=== PATIENT | male | born 1945 | race Caucasian/White ===

== ENCOUNTER → 2016-10-23 | Outpatient (CLI) | payer OTHER ==
[~2016-10-23] MED LIST: ATOR-22 PO; CMD75 PO; ENOX80IN SQ; WARF-237 PO
[2016-10-23 12:57] LABS: BASO % 0.3 %; BASO ABS # 0.02 K/uL (0-0.2); COMPLETE YES; EOS % 0.3 %; HEMATOCRIT 46.5 % (42-52); IG% 0.3 %; LYMPH % 9.4 %; LYMPH ABS # 0.68 K/uL (1.2-3.4); MEAN CELL VOLUME 90.5 fL (80-100); MEAN CORPUSCULAR HEMOGLOBIN 32.1 pg (25-34); MEAN CORPUSCULAR HGB CONC 35.5 g/dl (32-36); MEAN PLATELET VOLUME 10.6 fL (7.4-10.4); MONO % 4.8 %; NEUT % 84.9 %; PLATELET COUNT 137 K/uL (130-400); RED BLOOD COUNT 5.14 M/uL (4.7-6.1); WHITE BLOOD COUNT 7.27 K/uL (4.8-10.8)
[2016-10-23 13:07] LABS: ALT/SGPT 25 U/L (12-78); BLOOD UREA NITROGEN 26 mg/dl (7-18); BUN/CREATININE RATIO 19.8 (10-20); CARBON DIOXIDE 25 mmol/L (21-32); CHLORIDE 106 mmol/L (98-107); CHOLESTEROL 123 mg/dl (0-200); GLUCOSE 84 mg/dl (70-99); POTASSIUM 4.3 mmol/L (3.5-5.1); SODIUM 140 mmol/L (136-145)
[2016-10-23 13:10] LABS: ALB/GLOB RATIO 1.1 (0.9-2); ALKALINE PHOSPHATASE 110 U/L (45-117); AST/SGOT 21 U/L (15-37); CHOLESTEROL/HDL RATIO 2.9; HDL CHOLESTEROL 43 mg/dl; LDL CHOLESTEROL CALCULATED 56 mg/dl; TRIGLYCERIDES 118 mg/dl (0-150); VERY LOW DENSITY LIPOPROT CALC 24 mg/dl
== END | disposition home or self-care (01) ==
LOC: C.LABBFT 10:46
PROVIDERS: ATTEND Internal Medicine
DX: E78.5 Hyperlipidemia, unspecified (principal); Z51.81 Encounter for therapeutic drug level monitoring; Z79.01 Long term (current) use of anticoagulants; I82.409 Acute embolism and thrombosis of unspecified deep veins of unspecified lower extremity

== ENCOUNTER → 2017-10-27 | Outpatient (CLI) | payer OTHER ==
[2017-10-27 13:08] LABS: ALBUMIN 3.6 gm/dl (3.4-5.0); ALT/SGPT 32 U/L (12-78); AST/SGOT 21 U/L (15-37); BLOOD UREA NITROGEN 18 mg/dl (7-18); CALCIUM 8.6 mg/dl (8.5-10.1); CARBON DIOXIDE 27 mmol/L (21-32); GLUCOSE 86 mg/dl (70-99); SODIUM 140 mmol/L (136-145)
[2017-10-27 13:11] LABS: ALKALINE PHOSPHATASE 105 U/L (45-117); CHOLESTEROL 101 mg/dl (0-200); LDL CHOLESTEROL CALCULATED 43 mg/dl
== END | disposition home or self-care (01) ==
LOC: C.LABBFT 09:03
PROVIDERS: ATTEND Physician Assistant Medical
DX: E78.5 Hyperlipidemia, unspecified (principal)

== ENCOUNTER 2023-11-24 18:07 | Inpatient (IN) ==
--- NOTE | 2023-11-24 19:09 | XRay Report ---
XR chest 1V not portable HISTORY: Sepsis COMPARISON: Chest 11/04/2023. FINDINGS: A few left basilar linear densities favor subsegmental atelectasis or scarring. No focal rafat ng consolidations to suggest a pneumonia. No evidence for pulmonary edema. The heart is normal in siz e. No acute fractures. IMPRESSION: No acute process. ACT 112: Negative or not required by law. Electronically signed by: Oumar Carrillo M.D. 11/24/2023 7:07 PM
[2023-11-24 19:43] LABS: Basophils # (auto) 0.02 K/uL (0.00-0.20); Basophils % (auto) 0.5 %; Eosinophils # (auto) 0.11 K/uL (0.00-0.50); Eosinophils % (auto) 2.9 %; Hematocrit (blood only) 50.2 % (42.0-52.0); Hemoglobin 17.8 g/dl (14.0-18.0); Immature Granulocytes # (auto) 0.02 K/uL (0.01-0.20); Immature Granulocytes % (auto) 0.5 %; Lymphocytes # (auto) 0.26 K/uL (1.20-3.40); Lymphocytes % (auto) 6.8 %; Mean Corpuscular Hemoglobin 31.3 pg (25.0-34.0); Mean Corpuscular Hgb Conc 35.5 g/dL (32.0-36.0); Mean Corpuscular Volume 88.2 fL (80.0-100.0); Mean Platelet Volume 9.5 fL (9.4-12.4); Monocytes # (auto) 0.29 K/uL (0.11-0.59); Monocytes % (auto) 7.6 %; Neutrophils % (auto) 81.7 %; Platelet Count 164 K/uL (130-400); Red Blood Count 5.69 M/uL (4.70-6.10)
[2023-11-24 19:47] LABS: Appearance Urine Clear (Clear); Bacteria Urine Automated Negative (Negative); Blood Urine Negative (Negative); Color Urine Dark Yellow; Epithelial Cell Urine Auto >30 /lpf (0-5); Glucose Urine UA Negative (Negative); Ketones Urine Negative (Negative); Leukocyte Esterase Urine Negative (Negative); Nitrite Urine Negative (Negative); Protein Urine Trace (Negative); Specific Gravity Urine 1.027 (1.000-1.030); Urobilinogen Urine Negative (Negative)
[2023-11-24 19:51] LABS: Bilirubin Urine 1+ (Negative)
[2023-11-24 19:59] LABS: Alanine Aminotransferase 13 U/L (7-52); Albumin Globulin Ratio 1.2 (0.9-2); Albumin Level 4.4 gm/dl (3.4-5.0); Alkaline Phosphatase 131 U/L (34-104); Anion Gap 11 (3-11); Aspartate Aminotransferase 21 U/L (13-39); BUN Creatinine Ratio 21.2 (10-20); Bilirubin,Total 0.9 mg/dl (0.2-1.0); Blood Urea Nitrogen 46 mg/dl (6-23); Calcium 9.4 mg/dl (8.6-10.3); Carbon Dioxide 27 mmol/L (21-32); Chloride 93 mmol/L (98-107); Est GFR (African American) 32.1 ml/min; Est GFR (Non-African American) 27.7 ml/min; Globulin 3.8 gm/dl (2.5-4.0); Glucose 112 mg/dl (70-99(Fasting)); Magnesium 2.4 mg/dl (1.7-2.4); Potassium 4.5 mmol/L (3.5-5.1); Sodium 131 mmol/L (136-145); Total Protein 8.2 gm/dl (6.0-8.3)
[2023-11-24 20:07] LABS: Troponin I High Sensitivity 17.1 pg/ml (0-20)
[2023-11-24 20:11] LABS: INR 1.1 (0.9-1.1); Partial Thromboplastin Ratio 1.2; Partial Thromboplastin Time 35 Seconds (21-31); Prothrombin Time 12.2 Seconds (9.0-12.0)
--- NOTE | 2023-11-24 20:42 | Emergency Department Note ---
History of Present Illness General Chief complaint: Infection Stated complaint: LT LEG INFECTION Time Seen by Provider: 11/24/23 20:21 Source: patient, family (Son who is at the bedside), RN notes reviewed and old records reviewed (11/19/23- Outpatient primary care visit for same complaint) Mode of arrival: ambulatory Limitations: no limitations History of Present Illness Maximum Pain Intensity: 5 This patient is a an 78-year-old male who comes in after having left leg pain and swelling. He has been retaining fluids he was seen here and then had follow-up with his primary doctor on 11/18. They started him on Bactrim and Lasix 40 mg a day he is on Eliquis for history of blood clots. He did have an ultrasound on 11/04/23 which did not show any acute DVT there are some chronic DVT changes. He was seen by home health and they thought the leg looks significantly worse and has foul-smelling discharge at times. They sent him here after they called the primary care doctor. No chest pain no shortness of breath. He has a rash on his torso that has not been itchy. No fever Home Medications Medication Instructions Recorded Confirmed Type apixaban 5 mg tablet (Eliquis) 5 mg PO BID #60 tabs 11/12/23 11/24/23 Rx furosemide 40 mg tablet 40 mg PO DAILY #7 tabs 11/12/23 11/24/23 Rx sulfamethoxazole 800 1 tab PO BID 10 days #20 tabs 11/20/23 11/24/23 Rx mg-trimethoprim 160 mg tablet (Bactrim DS) Allergies Allergy/AdvReac Type Severity Reaction Status Date / Time oxycodone AdvReac Intermediate NAUSEA,VOMITING, Verified 11/24/23 20:58 DAZED FEELING warfarin AdvReac Mild h/a from Verified 11/24/23 20:58 generic, use Brand name only Past Med/Surg History Medical History Aortic insufficiency Colon polyp Diverticulosis Hx of venous thrombosis and embolism Internal hemorrhoids Traumatic subdural hematoma Surgical History History of inguinal hernia repair History of esophagogastroduodenoscopy (EGD) History of colonoscopy Family History Father Cancer Mother Cancer Denies family history of Prostate cancer Breast cancer Colorectal cancer Social History Smoking Status: Unknown if ever smoked Second Hand Exposure: No; Do You Dip or Chew Tobacco: No; Hx Alcohol Use: No Hx Substance Use: No Preferred Language: Polish Communication Ability: Effective Visual Impairment: No Limitations Hearing Ability: Normal marital status: / Current Living Situation: Alone current occupational status: retired Feels Safe at Home: Yes Diet: regular caffeine: Yes Dental Care, Regularly: No Physical Activity Frequency: Daily Seatbelt Use: always Review of Systems A total of 10 systems reviewed and were otherwise negative Physical Exam Vital Signs Vital Signs - 24 hr 11/24/23 18:11 11/24/23 21:13 11/24/23 21:13 Temperature 36.9 C Temperature Source Temporal Artery Scan Pulse Rate 96 H 101 H 96 H Pulse Rate from SpO2 Sensor Respiratory Rate 16 20 Respiratory Effort / Characteristics Non-Labored Spontaneous Respiratory Depth Normal Blood Pressure 124/57 L 126/74 Blood Pressure Mean 79 103 Pulse Oximetry 95 95 Oxygen Delivery Method Room Air Sepsis Recent Fever Within 48 Hours No Sepsis New/Unexplained Change in Mental Status N/A Sepsis Action Taken by Nursing No Action Required 11/24/23 21:14 11/24/23 21:20 11/24/23 21:30 Temperature Temperature Source Pulse Rate 96 H 96 H 115 H Pulse Rate from SpO2 Sensor 95 H Respiratory Rate 20 21 18 Respiratory Effort / Characteristics Respiratory Depth Blood Pressure Blood Pressure Mean Pulse Oximetry 95 Oxygen Delivery Method Sepsis Recent Fever Within 48 Hours Sepsis New/Unexplained Change in Mental Status Sepsis Action Taken by Nursing 11/24/23 21:40 11/24/23 21:50 Temperature Temperature Source Pulse Rate 98 H 99 H Pulse Rate from SpO2 Sensor Respiratory Rate 15 15 Respiratory Effort / Characteristics Respiratory Depth Blood Pressure Blood Pressure Mean Pulse Oximetry Oxygen Delivery Method Sepsis Recent Fever Within 48 Hours Sepsis New/Unexplained Change in Mental Status Sepsis Action Taken by Nursing General: Well developed well nourished older male who appears in no acute distress, breathing comfortably on room air. Normal speech HEENT: Normal cephalic atraumatic. Pupils are equal round and reactive to light. Extraocular movements are intact. Oropharynx is pink with moist mucous membranes. No swelling of the mouth lips or tongue. Neck: Supple with a midline trachea. No meningeal signs or stiffness, no JVD or bruits. No Stridor. Chest: Clear to auscultation bilaterally. No wheezes or rhonchi. No increased work of breathing. Heart: Regular rate and rhythm without murmurs or gallops. Abdomen: Soft nontender, nondistended without rebound guarding or rigidity. Extremities: No cyanosis clubbing he does have significant bilateral lower extremity edema with vascular insufficiency. The left leg is red and swollen there is skin breakdown anteriorly with some foul-smelling discharge. The entire leg is red around the thigh and below the knee Spine/Back. Non tender to palpation. No CVA tenderness Skin: Good turgor. He has a macular papular rash on his torso Neurologic exam: Cranial nerves two through 12 are intact. Motor and sensation are intact and symmetrical throughout. Course Administered Medications Discontinued Medications Sodium Chloride (Nss) 500 mls @ 999 mls/hr IV .Q31M ONE Stop: 11/24/23 21:06 Last Infusion: 11/24/23 22:47 Dose: Infused Documented By: Admin: 11/24/23 21:10 Dose: 999 mls/hr Documented By: KENIA Piperacillin Sod/Tazobactam Sod (Zosyn) 4.5 gm in 100 mls @ 200 mls/hr IV NOW ONE Stop: 11/24/23 21:18 Last Infusion: 11/24/23 22:46 Dose: Infused Documented By: Admin: 11/24/23 21:05 Dose: 200 mls/hr Documented By: KENIA Medical Decision Making Differential Diagnosis Cellulitis, vascular insufficiency, medication allergic reaction, DVT, sepsis Medical Records Attestation: I reviewed the patient's medical records. Home Medications Current Medication List: was personally reviewed by me Laboratory Data Attestation: I reviewed the patient's lab results. 11/24/23 19:20 11/24/23 19:20 Lab Results 11/24/23 11/24/23 Range/Units 19:20 21:24 WBC 3.80 L (4.8-10.8) K/ul RBC 5.69 (4.70-6.10) M/uL Hgb 17.8 (14.0-18.0) g/dl Hct 50.2 (42.0-52.0) % MCV 88.2 (80.0-100.0) fL MCH 31.3 (25.0-34.0) pg MCHC 35.5 (32.0-36.0) g/dL RDW Std Deviation 42.0 (36.4-46.3) fL RDW Coeff of Miriam 13.0 (11.5-14.5) % Plt Count 164 (130-400) K/uL MPV 9.5 (9.4-12.4) fL Immature Gran % (Auto) 0.5 % Neut % (Auto) 81.7 % Lymph % (Auto) 6.8 % Lassen % (Auto) 7.6 % Eos % (Auto) 2.9 % Baso % (Auto) 0.5 % Neut # (Auto) 3.10 (1.40-6.50) K/uL Lymph # (Auto) 0.26 L (1.20-3.40) K/uL Lassen # (Auto) 0.29 (0.11-0.59) K/uL Eos # (Auto) 0.11 (0.00-0.50) K/uL Baso # (Auto) 0.02 (0.00-0.20) K/uL Immature Gran # (Auto) 0.02 (0.01-0.20) K/uL PT 12.2 H (9.0-12.0) Seconds INR 1.1 (0.9-1.1) APTT 35 H (21-31) Seconds PTT Ratio 1.2 Sodium 131 L (136-145) mmol/L Potassium 4.5 (3.5-5.1) mmol/L Chloride 93 L (98-107) mmol/L Carbon Dioxide 27 (21-32) mmol/L Anion Gap 11 (3-11) BUN 46 H (6-23) mg/dl Creatinine 2.17 H (0.6-1.4) mg/dl Est Cr Clr Drug Dosing Not Reportable Est GFR ( Amer) 32.1 ml/min Est GFR (Non-Af Amer) 27.7 ml/min BUN/Creatinine Ratio 21.2 H (10-20) Glucose 112 H (70-99(Fasting)) mg/dl Lactate 1.7 1.5 (0.4-2.0) mmol/L Calcium 9.4 (8.6-10.3) mg/dl Magnesium 2.4 (1.7-2.4) mg/dl Total Bilirubin 0.9 (0.2-1.0) mg/dl AST 21 (13-39) U/L ALT 13 (7-52) U/L Alkaline Phosphatase 131 H (34-104) U/L Troponin I High Sens 17.1 (0-20) pg/ml Total Protein 8.2 (6.0-8.3) gm/dl Albumin 4.4 (3.4-5.0) gm/dl Globulin 3.8 (2.5-4.0) gm/dl Albumin/Globulin Ratio 1.2 (0.9-2) Procalcitonin 0.65 H (0-0.5) ng/ml Urine Color Dark Yellow Urine Appearance Clear (Clear) Urine pH 5.0 (4.5-7.5) Ur Specific Fulda 1.027 (1.000-1.030) Urine Protein Trace H (Negative) Urine Glucose (UA) Negative (Negative) Urine Ketones Negative (Negative) Urine Blood Negative (Negative) Urine Nitrite Negative (Negative) Urine Bilirubin 1+ H (Negative) Urine Urobilinogen Negative (Negative) Ur Leukocyte Esterase Negative (Negative) Urine WBC (Auto) 1-5 (0-5) /hpf Urine RBC (Auto) 5-10 H (0-4) /hpf U Hyaline Cast (Auto) 5-10 H (0-5) /lpf U Epithel Cells (Auto) >30 H (0-5) /lpf Urine Bacteria (Auto) Negative (Negative) Imaging Data Attestation: I personally reviewed and interpreted this imaging study as follows: My Impression: Chest x-rayno acute infiltrate, failure, pneumothorax seen Radiologist's Impression: Chest X-Ray 11/24/23 18:16 XR chest 1V not portable HISTORY: Sepsis COMPARISON: Chest 11/04/2023. FINDINGS: A few left basilar linear densities favor subsegmental atelectasis or scarring. No focal lung consolidations to suggest a pneumonia. No evidence for pulmonary edema. The heart is normal in size. No acute fractures. IMPRESSION: No acute process. ACT 112: Negative or not required by law. Electronically signed by: Oumar Carrillo M.D. 11/24/2023 7:07 PM ECG Data Attestation: I personally reviewed and interpreted this ECG as follows: Indication: + weakness Rate (beats per minute): 99 Rhythm: + normal sinus MDM Narrative This patient comes in as described above. [place] to help expedite his care. He was noted to have a red swollen left leg there is discharge. He has been on outpatient antibiotics also has a rash and I think is likely having allergic reaction to Bactrim is no evidence to suggest any airway compromise. Blood work was obtained. He also has renal insufficiency which has gotten worse it may be from either the Bactrim or the diuresis. he was given gentle fluid bolus of 500 cc IV, I did not use the 30/kg as he had stable vital signs and I was concerned about fluid overloading him. I did a blood cultures and lactic acid I do think he will need to be admitted for further treatment evaluation of his cellulitis. Have consulted Dr. Arnett and discussed the antibiotic choices we are going to start him on Zosyn here I ordered Zosyn 4.5 g IV. His lactic acid was 1.7. The patient's son were happy the plan and he will be admitted/observed. Continuous cardiac monitoring: Order was placed in EMR for continuous cardiac monitoring. Upon my evaluation is a poor baseline but normal sinus with a rate of 95 with ectopy/PACs Impression & Plan Cellulitis of left leg, History of DVT (deep vein thrombosis), Venous stasis of both lower extremities, Factor V Leiden mutation, Current use of fci anticoagulation Discharge Plan Visit Data Chief Complaint: Infection Stated Complaint: LT LEG INFECTION ED Provider: Obed Guevara Discharge Problem: Cellulitis of left leg, History of DVT (deep vein thrombosis), Venous stasis of both lower extremities, Factor V Leiden mutation, Current use of terminal manager anticoagulation Patient Disposition: Admitted As Inpatient Discharge Instructions Interventions: ED Discharge Assessment Last Done: 11/24/23 23:27
[2023-11-24] MEDS: PIPERACILLIN/TAZOBACTAM 4.5 GM/100 ML BAG IV ONE (21:05)
[2023-11-24] MEDS: SODIUM CHLORIDE 0.9% 500 ML IV ONE (21:10)
--- NOTE | 2023-11-24 22:03 | History & Physical Report ---
Date of Service November 24, 2023 Assessment & Plan (1) Cellulitis of left leg: Plan: -Persistent cellulitis for the past 3 months per patient, upon chart check patient has only been on Bactrim thus far. -L leg erythematous, warm, tender consistent with cellulitis. -Given Zosyn x1 in the ER. -Patient not diabetic, not immunocompromised, less likely pseudomonas infection. -Has had some puss/drainage per patient, concern for staph origin of cellulitis. -Will switch antibiotics to daptomycin 6mg/kg q48hr given kidney function, ceftriaxone 2gm q24h. -Watch for clinical improvement. -Admit to telemetry. (2) Acute kidney injury: Plan: -Creatinine 1.03 on 11/04, bumped to 1.48 11/18, then to 2.17 on admission. -Patient was started on Bactrim on as well as Lasix 40mg daily. -May have ALFRED due to Bactrim use. -Holding Bactrim and switching antibiotics as above. -If improvement on the above antibiotics could trial doxycycline instead. (3) Venous stasis of both lower extremities: Plan: -Both legs have chronic venous stasis look, with left leg appearing cellulitic on top of this. -Will hold on diuretic use at the current time until kidney function improves. (4) Factor V Leiden mutation: Plan: -History of Factor V Leiden mutation on chronic anticoagulation. -Will continue Eliquis at 2.5mg BID given creatinine >1.5 and patient 78 years old. (5) Hyperlipidemia: Plan: Noted. Not on any treatment. (6) emt intermediate current use of anticoagulant: Plan: As above. (7) Atrial fibrillation: Plan: Patient noted to be in A. fib w/ RVR on admission EKG. May be secondary to infection or chronic. -Will continue Eliquis as above. Could consider rate control however rates are trending down in 90's at the current time. Plan F/E/N/GI: Regular diet. DVT Prophylaxis: Eliquis 2.5mg BID Code status: Full code Dispo: Med/tele. History of Present Illness Chief Complaint: L leg cellulitis Primary Care Provider: Alexandro Jiménez MD Edwin is an 78 year old male with past history of aortic insufficiency, diverticulosis, venous thrombosis and embolism, traumatic subdural hematoma, atrial fibrillation coming in for chronic cellulitis of the left leg. Patient had previously had this start 3 months prior and stated that it has been persistent ever since. He has been on multiple antibiotics orally for this with some minor improvement but then persistence. He has also had accompanied swelling of the left leg and increased warmth. He was previously seen in the ER and a doppler was performed which showed no acute DVT, evidence of likely chronic DVT within superficial femoral veins. He has had some puss drainage at times from the area. He overall feels well, denies any fevers, chills, shortness of breath, chest pain, diarrhea, constipation, abdominal pain, any involvement of the R leg. He states he is on Eliquis for irregular heart rhythm. In the ER CBC unremarkable, CMP with increased creatinine/worsening kidney function from earlier in the month and worse than October; sodium 131, procal 0.65, U/A with trace protein, 5-10 RBC, 1+ bilirubin, hyaline cast, epithelial cast. CXR unremarkable. Allergies Allergy/AdvReac Type Severity Reaction Status Date / Time oxycodone AdvReac Intermediate NAUSEA,VOMITING, Verified 11/24/23 20:58 DAZED FEELING warfarin AdvReac Mild h/a from Verified 11/24/23 20:58 generic, use Brand name only Home Medications Medication Instructions Recorded Confirmed Type apixaban 5 mg tablet (Eliquis) 5 mg PO BID #60 tabs 11/12/23 11/24/23 Rx furosemide 40 mg tablet 40 mg PO DAILY #7 tabs 11/12/23 11/24/23 Rx sulfamethoxazole 800 1 tab PO BID 10 days #20 tabs 11/20/23 11/24/23 Rx mg-trimethoprim 160 mg tablet (Bactrim DS) Past Med/Surg History Medical History Aortic insufficiency Colon polyp Diverticulosis Hx of venous thrombosis and embolism Internal hemorrhoids Traumatic subdural hematoma Surgical History History of inguinal hernia repair History of esophagogastroduodenoscopy (EGD) History of colonoscopy Family History Father Cancer Mother Cancer Denies family history of Prostate cancer Breast cancer Colorectal cancer Social History Smoking Status: Unknown if ever smoked Second Hand Exposure: No; Do You Dip or Chew Tobacco: No; Hx Alcohol Use: No Hx Substance Use: No Preferred Language: Bulgarian Communication Ability: Effective Visual Impairment: No Limitations Hearing Ability: Normal 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 Physical Exam Constitutional: WD/WN, vitals as above Eyes: PERRL, conjunctivae normal, anicteric sclerae Respiratory: normal respiratory effort, lungs clear to auscultation Cardiovascular: Rate/Rhythm: + irregularly irregular Heart Sounds: normal S1 and normal S2 Gastrointestinal (Abdomen): normal bowel sounds, soft, nontender, no hepatosplenomegaly Skin: L leg with markedly increased warmth, erythema from knee to the ankle, chronic venous stasis changes likely as well when compared to the other leg. Psychiatric: A+Ox3, euthymic affect Results & Data Results & Data Vital Signs (Past 12 Hours) Vital Signs Temp Pulse Resp BP Pulse Ox O2 Del Method 11/24/23 21:13 101 H 11/24/23 18:11 36.9 C 96 H 16 124/57 L 95 Room Air Supervising Physician Co-Signing Physician Notes Patient seen and examined, chart reviewed, case discussed with Dr. Chowdhury and I agree with the assessment and plan as above Resident Activity Tracking Resident Involvement: Resident Care Provided Care Provided: Adult Hospital Medicine
[2023-11-24] MEDS ORDERED: POLYETHYLENE (MIRALAX) 17 GM PACK PO PRN (23:27)
[2023-11-24] MEDS ORDERED: ONDANSETRON INJ 2 MG/ML 2 ML VIAL IV PRN (23:27)
[2023-11-24] MEDS ORDERED: ACETAMINOPHEN 325 MG TAB PO PRN (23:27)
[2023-11-25] MEDS: Patient's HEIGHT &/or WEIGHT Needed STA (00:29)
[2023-11-25] MEDS: DAPTOmycin 500 MG in SYRINGE 0 ML IV SCH (01:01)
[2023-11-25 04:59] LABS: C Reactive Protein 3.56 mg/dl (0-0.5); Calcium 8.2 mg/dl (8.6-10.3); Creatinine Clr Calc Pharmacy 33.9 ml/min; Est GFR (African American) 37.5 ml/min; Est GFR (Non-African American) 32.4 ml/min
[2023-11-25 05:33] LABS: Basophils # (auto) 0.02 K/uL (0.00-0.20); Basophils % (auto) 0.4 %; Eosinophils # (auto) 0.08 K/uL (0.00-0.50); Eosinophils % (auto) 1.7 %; Hematocrit (blood only) 44.2 % (42.0-52.0); Hemoglobin 14.9 g/dl (14.0-18.0); Immature Granulocytes # (auto) 0.03 K/uL (0.01-0.20); Immature Granulocytes % (auto) 0.6 %; Lymphocytes # (auto) 0.21 K/uL (1.20-3.40); Lymphocytes % (auto) 4.4 %; Mean Corpuscular Hemoglobin 30.1 pg (25.0-34.0); Mean Corpuscular Hgb Conc 33.7 g/dL (32.0-36.0); Mean Corpuscular Volume 89.3 fL (80.0-100.0); Mean Platelet Volume 9.3 fL (9.4-12.4); Monocytes % (auto) 6.3 %; Neutrophils # (auto) 4.15 K/uL (1.40-6.50); Neutrophils % (auto) 86.6 %; Platelet Count 132 K/uL (130-400); RDW Coefficient of Variation 12.8 % (11.5-14.5); Red Blood Count 4.95 M/uL (4.70-6.10); White Blood Count 4.79 K/ul (4.8-10.8)
[2023-11-25] MEDS: cefTRIAXone SODIUM 2,000 MG in DEXTROSE 5 % MINI-B 50 ML IV SCH (08:15)
[2023-11-25] MEDS: APIXABAN 2.5 MG TAB PO SCH (08:36)
[2023-11-26 08:12] LABS: Basophils # (auto) 0.03 K/uL (0.00-0.20); Basophils % (auto) 0.8 %; Eosinophils # (auto) 0.24 K/uL (0.00-0.50); Eosinophils % (auto) 6.2 %; Hematocrit (blood only) 43.7 % (42.0-52.0); Hemoglobin 15.1 g/dl (14.0-18.0); Immature Granulocytes # (auto) 0.02 K/uL (0.01-0.20); Immature Granulocytes % (auto) 0.5 %; Lymphocytes # (auto) 0.23 K/uL (1.20-3.40); Lymphocytes % (auto) 5.9 %; Mean Corpuscular Hemoglobin 30.4 pg (25.0-34.0); Mean Corpuscular Hgb Conc 34.6 g/dL (32.0-36.0); Mean Corpuscular Volume 88.1 fL (80.0-100.0); Mean Platelet Volume 9.8 fL (9.4-12.4); Monocytes # (auto) 0.26 K/uL (0.11-0.59); Monocytes % (auto) 6.7 %; Neutrophils % (auto) 79.9 %; Platelet Count 110 K/uL (130-400); RDW Standard Deviation 41.9 fL (36.4-46.3); Red Blood Count 4.96 M/uL (4.70-6.10); White Blood Count 3.88 K/ul (4.8-10.8)
[2023-11-26 08:33] LABS: BUN Creatinine Ratio 27.8 (10-20); C Reactive Protein 3.79 mg/dl (0-0.5); Calcium 8.1 mg/dl (8.6-10.3); Creatinine Clr Calc Pharmacy 48.6 ml/min; Est GFR (African American) 58.1 ml/min; Est GFR (Non-African American) 50.1 ml/min
--- NOTE | 2023-11-26 17:30 | Hospitalist Progress Note ---
Date of Service November 26, 2023 Assessment & Plan (1) Atrial fibrillation: (2) Acute kidney injury: (3) Cellulitis of left leg: (4) Venous stasis of both lower extremities: Plan (1) Cellulitis of left leg: Plan: -Persistent cellulitis for the past 3 months per patient, upon chart check patient has only been on Bactrim thus far. -L leg erythematous, warm, tender consistent with cellulitis. on daptomycin 6mg/kg q48hr given kidney function, ceftriaxone 2gm q24h. wound care consulted (2) Acute kidney injury: Plan: -Creatinine 1.03 on 11/04, bumped to 1.48 11/18, then to 2.17 on admission. -Patient was started on Bactrim on as well as Lasix 40mg daily. holding them ALFRED resolved daily bmp (3) Venous stasis of both lower extremities: Plan: -Both legs have chronic venous stasis look, with left leg appearing cellulitic on top of this. -Will hold on diuretic use at the current time until kidney function improves. (4) Factor V Leiden mutation: Plan: -History of Factor V Leiden mutation on chronic anticoagulation. -Will continue Eliquis at 2.5mg BID given creatinine >1.5 and patient 78 years old. (5) Hyperlipidemia: Plan: Noted. Not on any treatment. (6) longterm current use of anticoagulant: Plan: As above. (7) Atrial fibrillation: Plan: Patient noted to be in A. fib w/ RVR on admission EKG. May be secondary to infection or chronic. -Will continue Eliquis as above. Could consider rate control however rates are trending down in 90's at the current time. 8) hyponatremia improving , monitor BMP Plan F/E/N/GI: Regular diet. DVT Prophylaxis: Eliquis 2.5mg BID Code status: Full code Dispo: Med/tele. Admission and Anticipated Discharge Date Admission Date: November 24, 2023 Subjective reports feeling better, no fever, chills or SOB Review of Systems Review of Systems: All systems reviewed & are unremarkable except as noted in Subjective Physical Exam Physical Exam: head atraumatic , normocephalic neck supple lungs CTA heart S1S2 irregularly irregular abdomen soft, NT, ND, BS present extremities erythema, wounds neuro AA oriented to his name, place Results & Data Results & Data Vital Signs (Past 12 Hours) Vital Signs Temp Pulse Pulse Resp BP Pulse Ox O2 Del Method 11/26/23 16:09 77 11/26/23 15:39 36.5 C 81 18 113/63 97 Room Air 11/26/23 11:19 36.7 C 85 18 103/55 L 94 Room Air 11/26/23 09:15 Room Air 11/26/23 07:17 36.8 C 90 18 105/59 L 98 Room Air 11/26/23 07:10 88 Laboratory Results Abnormal lab results 11/26/23 Range/Units 07:45 WBC 3.88 L (4.8-10.8) K/ul Plt Count 110 L (130-400) K/uL Lymph # (Auto) 0.23 L (1.20-3.40) K/uL Sodium 135 L (136-145) mmol/L BUN 37 H (6-23) mg/dl BUN/Creatinine Ratio 27.8 H (10-20) Glucose 101 H (70-99(Fasting)) mg/dl Calcium 8.1 L (8.6-10.3) mg/dl C-Reactive Protein 3.79 H (0-0.5) mg/dl Medications Administered Current Inpatient Medications Acetaminophen (Acetaminophen 325 Mg Tab) 650 mg PO Q4H PRN PRN Reason: Pain or Fever Stop: 12/24/23 23:26 Apixaban (Apixaban 2.5 Mg Tab) 2.5 mg PO BID NI Stop: 12/25/23 08:59 Last Admin: 11/26/23 09:12 Dose: 2.5 mg Daptomycin 500 mg/ Syringe 10 mls @ 5 mls/min IV Q24H NI; Protocol Stop: 12/02/23 00:59 Last Admin: 11/26/23 02:54 Dose: 5 mls/min Ceftriaxone Sodium 2,000 mg/ (Dextrose) 50 mls @ 100 mls/hr IV Q24H NI; Protocol Stop: 12/02/23 05:59 Last Infusion: 11/26/23 05:07 Dose: Infused Ondansetron HCl (Ondansetron Inj 2 Mg/Ml 2 Ml Vial) 4 mg IV Q6H PRN PRN Reason: Nausea Stop: 12/24/23 23:26 Polyethylene Glycol (Polyethylene (Miralax) 17 Gm Pack) 17 gm PO DAILY PRN PRN Reason: Constipation Stop: 12/24/23 23:26 PG Care Time/CCT Total # of Minutes Spent Total Time Spent with Patient: Total time spent is greater than 50% in coordination of care (as documented) at patient's floor/unit and/or counseling patient: Coding Level of Care Code 23662 SUB INP/OBS CARE 2/35MIN Diagnoses Atrial fibrillation I48.91 Acute kidney injury N17.9 Cellulitis of left leg L03.116 Venous stasis of both lower extremities I87.8
--- NOTE | 2023-11-27 06:01 | Electrocardiogram Report ---
Test Reason : Blood Pressure : / mmHG Vent. Rate : 108 BPM Atrial Rate : 000 BPM P-R Int : 000 ms QRS Dur : 078 ms QT Int : 322 ms P-R-T Axes : 000 051 080 degrees QTc Int : 431 ms Poor data quality, interpretation may be adversely affected Possible Sinus tachycardia with occasional Premature atrial complexes Nonspecific ST and T wave abnormality Abnormal ECG When compared with ECG of 04-NOV-2023 09:11, Artifact is now present Confirmed by Gordon Orlando ([id number]) on 11/27/2023 6:01:23 AM Referred By: REFERRED SELF Confirmed By:Gordon Orlando
--- NOTE | 2023-11-27 06:03 | Electrocardiogram Report ---
Test Reason : Blood Pressure : / mmHG Vent. Rate : 099 BPM Atrial Rate : 099 BPM P-R Int : 172 ms QRS Dur : 084 ms QT Int : 348 ms P-R-T Axes : 118 043 066 degrees QTc Int : 446 ms Sinus rhythm with Premature atrial complexes Otherwise normal ECG When compared with ECG of 24-NOV-2023 19:10, No significant change Confirmed by Gordon Orlando ([id number] on 11/27/2023 6:02:58 AM Referred By: REFERRED SELF Confirmed By:Gordon Orlando
[2023-11-27 07:05] LABS: Hematocrit (blood only) 43.2 % (42.0-52.0); Mean Corpuscular Hemoglobin 30.6 pg (25.0-34.0); Mean Corpuscular Hgb Conc 34.7 g/dL (32.0-36.0); Mean Corpuscular Volume 88.2 fL (80.0-100.0); Mean Platelet Volume 9.6 fL (9.4-12.4); Platelet Count 140 K/uL (130-400); RDW Coefficient of Variation 12.8 % (11.5-14.5); RDW Standard Deviation 41.5 fL (36.4-46.3); White Blood Count 4.01 K/ul (4.8-10.8)
[2023-11-27 07:48] LABS: BUN Creatinine Ratio 29.6 (10-20); C Reactive Protein 3.12 mg/dl (0-0.5); Calcium 8.2 mg/dl (8.6-10.3); Creatinine Clr Calc Pharmacy 59.9 ml/min; Est GFR (African American) 74.7 ml/min; Est GFR (Non-African American) 64.5 ml/min
[2023-11-27 08:09] LABS: Basophils # (auto) 0.04 K/uL (0.00-0.20); Eosinophils # (auto) 0.34 K/uL (0.00-0.50); Eosinophils % (auto) 8.5 %; Immature Granulocytes # (auto) 0.02 K/uL (0.01-0.20); Immature Granulocytes % (auto) 0.5 %; Lymphocytes # (auto) 0.41 K/uL (1.20-3.40); Lymphocytes % (auto) 10.2 %; Monocytes # (auto) 0.32 K/uL (0.11-0.59); Neutrophils # (auto) 2.88 K/uL (1.40-6.50); Neutrophils % (auto) 71.8 %
--- NOTE | 2023-11-27 10:40 | Ultrasound Report ---
US arterial duplex LE BI HISTORY: 78 years-old Male wounds chronic wounds of the right lower leg COMPARISON: None TECHNIQUE: Multiple real-time sonographic images of the right lower extremity arterial structures wer e obtained assessing grayscale appearance, color and spectral flow FINDINGS: RIGHT: Triphasic waveforms above the level of the knee. Atherosclerosis. Biphasic and triphasic waveforms no kp within the lower leg. No arterial occlusion or elevated peak systolic velocities to suggest high- grade stenosis. Linear stranding within the popliteal vein is likely chronic without occlusive thromb us identified. LEFT: Triphasic waveforms above the level of the knee. Atherosclerosis. No arterial occlusion identified. B lunted monophasic waveforms within the dorsalis pedis artery with areas of elevated peak systolic dylon ocities measuring up to 238 cm/s and diminished velocities measuring up to 12 cm/s. Several of the ar terial structures are not well visualized secondary to the bandage within the lower leg. IMPRESSION: 1. 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 2. No arterial occlusion identified. ACT 112: Negative or not required by law. The above report was generated using voice recognition software. It may contain grammatical, syntax o r spelling errors. Electronically signed by: Joe Richard M.D. 11/27/2023 10:37 AM
--- NOTE | 2023-11-27 14:48 | Hospitalist Progress Note ---
Date of Service November 27, 2023 Assessment & Plan (1) Cellulitis of left leg: Plan: -Persistent cellulitis for the past 3 months per patient, upon chart check patient has only been on Bactrim thus far. -L leg erythematous, warm, tender consistent with cellulitis. -Given Zosyn x1 in the ER. -Patient not diabetic, not immunocompromised, less likely pseudomonas infection. -Has had some puss/drainage per patient, concern for staph origin of cellulitis. -Will switch antibiotics to daptomycin 6mg/kg q48hr given kidney function, ceftriaxone 2gm q24h. -Watch for clinical improvement will transition to po antibbiotics , if no worsening , discharge home with home care, home care arranged needs to follow up with wound care center (2) Acute kidney injury: Plan: -Creatinine 1.03 on 11/04, bumped to 1.48 11/18, then to 2.17 on admission- >resolved -Patient was started on Bactrim on as well as Lasix 40mg daily. -May have ALFRED due to Bactrim use. -Holding Bactrim and switching antibiotics as above. ALFRED resolved (3) Venous stasis of both lower extremities: Plan: -Both legs have chronic venous stasis look, with left leg appearing cellulitic on top of this. -continue wound care . (4) Factor V Leiden mutation: Plan: -History of Factor V Leiden mutation on chronic anticoagulation. -Will continue Eliquis at 2.5mg BID given creatinine >1.5 and patient 78 years old. (5) Hyperlipidemia: Plan: Noted. Not on any treatment. 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 (7) Atrial fibrillation: Plan: Patient noted to be in A. fib w/ RVR on admission EKG. May be secondary to infection or chronic. -Will continue Eliquis as above. Could consider rate control however rates are trending down in 90's at the current time. Plan F/E/N/GI: Regular diet. DVT Prophylaxis: Eliquis 2.5mg BID Code status: Full code Dispo: Med/tele. Admission and Anticipated Discharge Date Admission Date: November 24, 2023 discharge tomorrow if stable Subjective reports feeling better, no fever, chills or SOB, no legs pain, good appetite Review of Systems Review of Systems: All systems reviewed & are unremarkable except as noted in Subjective Physical Exam Physical Exam: head atraumatic , normocephalic neck supple lungs CTA heart S1S2 irregularly irregular abdomen soft, NT, ND, BS present extremities erythema, wounds , wrapped neuro AA oriented to his name, place Results & Data Results & Data Vital Signs (Past 12 Hours) Vital Signs Temp Pulse Pulse Resp BP Pulse Ox O2 Del Method 11/27/23 11:29 36.3 C L 75 18 112/60 98 Room Air 11/27/23 07:52 36.3 C L 86 20 128/72 95 Room Air 11/27/23 07:19 80 11/27/23 05:00 77 Laboratory Results Abnormal lab results 11/27/23 Range/Units 05:41 WBC 4.01 L (4.8-10.8) K/ul Lymph # (Auto) 0.41 L (1.20-3.40) K/uL Sodium 135 L (136-145) mmol/L BUN 32 H (6-23) mg/dl BUN/Creatinine Ratio 29.6 H (10-20) Calcium 8.2 L (8.6-10.3) mg/dl C-Reactive Protein 3.12 H (0-0.5) mg/dl Medications Administered Current Inpatient Medications Acetaminophen (Acetaminophen 325 Mg Tab) 650 mg PO Q4H PRN PRN Reason: Pain or Fever Stop: 12/24/23 23:26 Apixaban (Apixaban 2.5 Mg Tab) 2.5 mg PO BID NI Stop: 12/25/23 08:59 Last Admin: 11/27/23 09:40 Dose: 2.5 mg Daptomycin 500 mg/ Syringe 10 mls @ 5 mls/min IV Q24H NI; Protocol Stop: 12/02/23 00:59 Last Admin: 11/27/23 01:33 Dose: 5 mls/min Ceftriaxone Sodium 2,000 mg/ (Dextrose) 50 mls @ 100 mls/hr IV Q24H NI; Protocol Stop: 12/02/23 05:59 Last Infusion: 11/27/23 06:23 Dose: Infused Ondansetron HCl (Ondansetron Inj 2 Mg/Ml 2 Ml Vial) 4 mg IV Q6H PRN PRN Reason: Nausea Stop: 12/24/23 23:26 Polyethylene Glycol (Polyethylene (Miralax) 17 Gm Pack) 17 gm PO DAILY PRN PRN Reason: Constipation Stop: 12/24/23 23:26 PG Care Time/CCT Total # of Minutes Spent Total Time Spent with Patient: Total time spent is greater than 50% in coordination of care (as documented) at patient's floor/unit and/or counseling patient: Coding Level of Care Code 38380 SUB INP/OBS CARE 2/35MIN Diagnoses Cellulitis of left leg L03.116 Acute kidney injury N17.9 Venous stasis of both lower extremities I87.8 Factor V Leiden mutation D68.51 Hyperlipidemia E78.5 halfway current use of anticoagulant Z79.01 Atrial fibrillation I48.91
[2023-11-27] MEDS: AMMONIUM LACTATE 12% LOTION 225 GM BTL EXT SCH (16:59)
[2023-11-27] MEDS: AMOXICILLIN/CLAVULANATE 875 MG TAB PO SCH (17:18)
[2023-11-27] MEDS: DOXYCYCLINE HYCLATE 100 MG CAP PO SCH (21:22)
[2023-11-28 09:30] LABS: Hematocrit (blood only) 46.5 % (42.0-52.0); Hemoglobin 15.7 g/dl (14.0-18.0); Mean Corpuscular Hemoglobin 29.9 pg (25.0-34.0); Mean Corpuscular Hgb Conc 33.8 g/dL (32.0-36.0); Mean Corpuscular Volume 88.6 fL (80.0-100.0); Mean Platelet Volume 9.4 fL (9.4-12.4); Platelet Count 164 K/uL (130-400); RDW Coefficient of Variation 12.8 % (11.5-14.5); RDW Standard Deviation 41.7 fL (36.4-46.3); Red Blood Count 5.25 M/uL (4.70-6.10)
--- NOTE | 2023-11-28 11:34 | Discharge Summary ---
Date of Service November 28, 2023 Admission HPI Per Admitting Provider Edwin is an 78 year old male with past history of aortic insufficiency, diverticulosis, venous thrombosis and embolism, traumatic subdural hematoma, atrial fibrillation coming in for chronic cellulitis of the left leg. Patient had previously had this start 3 months prior and stated that it has been persistent ever since. He has been on multiple antibiotics orally for this with some minor improvement but then persistence. He has also had accompanied swelling of the left leg and increased warmth. He was previously seen in the ER and a doppler was performed which showed no acute DVT, evidence of likely chronic DVT within superficial femoral veins. He has had some puss drainage at times from the area. He overall feels well, denies any fevers, chills, shortness of breath, chest pain, diarrhea, constipation, abdominal pain, any involvement of the R leg. He states he is on Eliquis for irregular heart rhythm. In the ER CBC unremarkable, CMP with increased creatinine/worsening kidney function from earlier in the month and worse than October; sodium 131, procal 0.65, U/A with trace protein, 5-10 RBC, 1+ bilirubin, hyaline cast, epithelial cast. CXR unremarkable. Admission Exam Per Admitting Provider Constitutional: WD/WN, vitals as above Eyes: PERRL, conjunctivae normal, anicteric sclerae Respiratory: normal respiratory effort, lungs clear to auscultation Cardiovascular: Rate/Rhythm: + irregularly irregular Heart Sounds: normal S1 and normal S2 Gastrointestinal (Abdomen): normal bowel sounds, soft, nontender, no hepatosplenomegaly Skin: L leg with markedly increased warmth, erythema from knee to the ankle, chronic venous stasis changes likely as well when compared to the other leg. Psychiatric: A+Ox3, euthymic affect Principal Diagnosis Left leg cellulitis Acute kidney injury. Resolved Venous stasis of both lower extremities Discharge Exam General: Awake, conversant Heart: S1, S2/regular rate and rhythm, no murmur rubs or gallops Lungs: Clear to auscultation bilaterally. Normal effort Abdomen: Soft/nontender/nondistended. No hepatosplenomegaly Extremities: No clubbing/cyanosis. Left leg wounds wrapped. Erythema improved overall. Behavior: Appropriate, cooperative Discharge Data Allergies Allergy/AdvReac Type Severity Reaction Status Date / Time oxycodone AdvReac Intermediate NAUSEA,VOMITING, Verified 11/24/23 20:58 DAZED FEELING warfarin AdvReac Mild h/a from Verified 11/24/23 20:58 generic, use Brand name only Consultations 11/24/23 20:49 ED Decision to Admit Stat Ordered Studies 11/27/23 arterial duplex LE Routine Hospital Course (1) Cellulitis of left leg: -Persistent cellulitis for the past 3 months per patient, upon chart check patient has only been on Bactrim thus far. -L leg erythematous, warm, tender consistent with cellulitis. -Given Zosyn x1 in the ER. -Patient not diabetic, not immunocompromised, less likely pseudomonas infection. -Has had some puss/drainage per patient, concern for staph origin of cellulitis. -Patient was on daptomycin 6mg/kg q48hr given kidney function, ceftriaxone 2gm q24h during this hospital stay Clinically improved Patient was switched to to po antibbiotics. No clinical worsening. Will discharge on current antibiotics to complete the course. Home health arranged for wound care (2) Acute kidney injury: -Creatinine 1.03 on 11/04, bumped to 1.48 11/18, then to 2.17 on admission- >resolved -Patient was started on Bactrim on as well as Lasix 40mg daily. -May have ALFRED due to Bactrim use. -Holding Bactrim and switching antibiotics as above. ALFRED resolved (3) Venous stasis of both lower extremities: -Both legs have chronic venous stasis look, with left leg appearing cellulitic on top of this. -continue wound care . (4) Factor V Leiden mutation: -History of Factor V Leiden mutation on chronic anticoagulation. -Will continue Eliquis at 2.5mg BID given creatinine >1.5 and patient 78 years old. (5) Hyperlipidemia: Noted. Not on any treatment. 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 (7) Atrial fibrillation: Patient noted to be in A. fib w/ RVR on admission EKG. May be secondary to infection or chronic. -Will continue Eliquis as above. Plan F/E/N/GI: Regular diet. DVT Prophylaxis: Eliquis 2.5mg BID Code status: Full code Dispo: Med/tele. Total Time Total Time Spent Total Time Spent (In Minutes): 35 Discharge Plan Discharge Items Patient Disposition: Home - Home Health Services Reason For Visit: CELLULITIS Discharge Diagnosis: Left leg cellulitis Acute kidney injury. Resolved Venous stasis of both lower extremities Activity: Resume your previous activity Non-emergency contact: Primary Care Provider Call non-emergency contact if: you have any medication questions Follow-up/Referrals: Alexandro Jiménez MD [Primary Care Provider] - Diet: Heart Healthy Addtl Attending Provider Instructions: Advised to follow-up with PCP in 1 week Advised to note that you are being discharged on 2 oral antibiotics to treat the cellulitis Pending Studies at Discharge: No Stand-Alone Forms: My [facility] Medications and DC Order Prescriptions: New amoxicillin-pot clavulanate 875-125 mg Tablet 1 tab PO BIDM 4 Days Qty: 8 0RF doxycycline hyclate 100 mg Capsule 100 mg PO BID 4 Days Qty: 8 0RF Continued furosemide 40 mg tablet 40 mg PO DAILY Qty: 7 2RF Eliquis 5 mg tablet 5 mg PO BID Qty: 60 2RF Discontinued sulfamethoxazole-trimethoprim [Bactrim DS] 800-160 mg tablet 1 tab PO BID 10 Days Qty: 20 0RF Rx Instructions: STARTED 11/20/23 FOR 10 DAYS Discharge Orders: Discharge Order (Routine); Ordered 11/28/23 Ordered By: Andre Omalley Admission Data Admit Date/Time: 11/24/23 21:53 Attending Provider: Andre Omalley Admit Provider: Gera Chowdhury Primary Care Provider: Alexandro Jiménez Other Providers: Luly Arnett Other Interventions: Discharge Summary Assessment (RN) Last Done: 11/28/23 12:10 Coding Level of Care Code 84946 INP/OBS DISCH >30 MIN Diagnoses Cellulitis of left leg L03.116 Acute kidney injury N17.9 Venous stasis of both lower extremities I87.8 Factor V Leiden mutation D68.51 Hyperlipidemia E78.5 intermediate frame tender current use of anticoagulant Z79.01 Atrial fibrillation I48.91
--- NOTE | 2023-12-01 09:51 | Coding Query ---
To promote full compliance with coding requirements relating to patient care, provider participation is requested in all cases of sanitor uncertainty. Please assist us with the question(s) below: Coding Question(s): The diagnosis below was documented in the Addendum on the 11/25 Hospitalist Progress Note, then subsequently fell off all further documentation. Please indicate if it is still a possible diagnosis or ruled out. Physician's Response(s): SEPSIS (documented on the Addendum on the 11/25 Hospitalist Progress Note) ( x ) Diagnosed ( ) Ruled out ( ) Other (please specify) MTDD
== END 2023-11-28 15:38 | disposition home health service (06) | DRG 872 ==
LOC: SUATTDRO → ED 18:07 → SUATTDRO 21:53 → EDINP 21:53 → 2N 11-25 20:37
DX: I87.8 Other specified disorders of veins; I48.20 Chronic atrial fibrillation, unspecified; Z88.8 Allergy status to other drugs, medicaments and biological substances; L03.116 Cellulitis of left lower limb; Z86.718 Personal history of other venous thrombosis and embolism; Z88.5 Allergy status to narcotic agent; T37.0X5A Adverse effect of sulfonamides, initial encounter; Z79.01 Long term (current) use of anticoagulants; Z79.899 Other long term (current) drug therapy; D68.51 Activated protein C resistance; N17.9 Acute kidney failure, unspecified; A41.9 Sepsis, unspecified organism

== ENCOUNTER 2024-04-26 16:18 | Inpatient (IN) ==
--- NOTE | 2024-04-26 16:40 | Emergency Department Note ---
Impression & Plan Chronic subdural hematoma ADMIT ED Provider Note HPI: History obtained from bedside RN via EMS report. The patient is a 78-year-old gentleman with history of recent TBI (subarachnoid hemorrhage with subdural hematoma status post fall 1 month ago), DNR/DNI CODE STATUS with limited interventions, who presents the emergency department with altered mental status. Over the past several days according to the patient's [id number] who later arrived at the bedside he has been increasingly confused and seemingly having some increased pain in his head. He frequently will hold his head although he is unable to fully express whether or not he is having headache. He recently was assessed for home hospice and was determined to ultimately to not be within imminent risk of and therefore home hospice was not obtained per family. On arrival here to the ED the patient is unable to provide me with any useful history however he does not display any focal deficits. He is able to follow some basic commands. Patient is hemodynamically stable on arrival. ROS: - Per HPI Differential Diagnosis: Intracranial hemorrhage, stroke, sepsis, acute kidney injury/dehydration, urinary tract infection, viral illness, amongst other potential pathologies. *Outpatient medications and allergy history reviewed. PE: General: Alert HEENT: Normocephalic, trachea midline Eyes: Extraocular eye movement is intact, no scleral erythema Pulmonary: Clear to auscultation bilaterally, no wheezing Cardio: Regular rate and rhythm GI: Abdomen is soft to palpation : No suprapubic tenderness MSK: No evidence of trauma or malformation of the extremities, no edema Skin: No evidence of rash Neuro: Alert, patient is able to follow commands, equal bilateral farm operator strength, symmetrical facial movements are appreciated, patient ambulates all extremities spontaneously without issue Psychiatric: Cooperative INDEPENDENT INTERPRETATIONS: personnel monitor: (As interpreted by myself): - An order was placed for continuous cardiac monitoring - Patient was noted to be in sinus rhythm with a rate of 60 EKG: (As interpreted by myself): Rate: 69 Rhythm: Normal sinus rhythm Intervals: Within normal limits ST changes: No ST elevation Time: 1629 Chest x-ray: (As interpreted by myself): -No acute disease Interventions provided in ED: -IV morphine, IV Zofran Medical Decision Making: Patient presented to the emergency department with some mild confusion, diminished appetite, and apparent headache. He does have a history of traumatic brain injury with subarachnoid hemorrhage and subdural hematoma about 1 month ago for which she was seen at [facility]. On arrival here to the ER the patient appears to be in some mild discomfort although he is able to follow commands and ambulates all extremities spontaneously. CT imaging of the head without contrast was obtained that shows evidence of subacute bilateral subdural hemorrhage with mass effect but no anitha herniation per the interpreting radiologist. Lab work otherwise shows mild leukopenia at 4.65, hemoglobin is normal, platelet count is normal, CMP does not show any critical findings. EKG per my interpretation shows normal sinus rhythm. I discussed the patient CT imaging findings with the interpreting radiologist, Dr. Salcido. He does believe that there is some layering of the subdural hemorrhage which likely occurred within the window of the past several weeks since the patient was discharged from [facility]. Patient's [id number] later arrived at the bedside, she is the POA, she states that the patient is DNR/DNI and they were actually trying to pursue home hospice but following a home visit this was declined by the hospice service. She states the family does not want any aggressive measures done, they are not interested in neurosurgery consultation or potential surgical intervention for the patient's subdural hematomas. Patient was given IV morphine and IV Zofran here in the ED with improvement in his discomfort. Patient's [id number] states that they would be interested in placing the patient into the hospital to arrange hospice care. I discussed the patient's presentation with the on-call hospitalist, Dr. Dobbins, he did take report and excepted admission however the H&P will be deferred to the night hospitalist, Dr. Corcoran, as it is change of shift. I again discussed this plan of care with the patient's [id number] and also his son who later arrived at the bedside. They are in agreement for admission for palliative consultation. Patient is DNR/DNI CODE STATUS was updated in the computer and the patient was placed for admission in stable condition. Consultants/Discussions held with other healthcare providers: -Hospitalist, Dr. Dobbins Disposition discussion held by myself with: -Patient's hxlgyipl-[id number] and son at the bedside Diagnosis: 1. Subdural hemorrhage, bilateral, subacute 2. Headache, acute, intractable 3. DNR/DNI CODE STATUS 4. 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 Factor V Leiden mutation (Chronic) Right knee sprain (Acute) History of adenomatous polyp of colon History of DVT (deep vein thrombosis) (Acute) Medical History Aortic insufficiency Colon polyp Diverticulosis Hx of venous thrombosis and embolism Internal hemorrhoids Traumatic subdural hematoma Surgical History History of inguinal hernia repair History of esophagogastroduodenoscopy (EGD) History of colonoscopy Family History Father Cancer Mother Cancer Denies family history of Prostate cancer Breast cancer Colorectal cancer Social History (Updated 04/15/24 @ 09:35 by Teresa Green LPN) Smoking Status: Never smoker Second Hand Exposure: No; Do You Dip or Chew Tobacco: No; Hx Alcohol Use: No Hx Substance Use: No Preferred Language: [place] Communication Ability: Effective Visual Impairment: No Limitations Hearing Ability: Normal Performance Improvement Manager Required: No Beliefs That Will Affect Care: None marital status: / Current Living Situation: Alone current occupational status: retired Feels Safe at Home: Yes Diet: regular caffeine: Yes Dental Care, Regularly: No Physical Activity Frequency: Daily Seatbelt Use: always Assistive Devices: Glasses Allergies Allergies Allergy/AdvReac Type Severity Reaction Status Date / Time oxycodone AdvReac Intermediate NAUSEA,VOMITING, Verified 04/15/24 09:32 DAZED FEELING warfarin AdvReac Mild h/a from Verified 04/15/24 09:32 generic, use Brand name only Home Meds Previous Rx's Medication Instructions Recorded apixaban 5 mg tablet (Eliquis) 5 mg PO BID #60 tabs 11/12/23 furosemide 40 mg tablet 40 mg PO .QOD #30 tabs 12/18/23 Results & Data (ED) Vital Signs Vital Signs - 24 hr 04/26/24 16:31 04/26/24 16:34 04/26/24 16:43 Temperature Temperature Source Pulse Rate 76 Pulse Rate [Apical] 69 Respiratory Rate 20 Respiratory Effort / Characteristics Non-Labored Spontaneous Respiratory Depth Normal Respiratory Pattern Blood Pressure [Left Arm] 144/77 H Blood Pressure Mean [Left Arm] 99 Blood Pressure Position [Left Arm] Pulse Oximetry 100 98 Oxygen Delivery Method Room Air Room Air Sepsis New/Unexplained Change in Mental Status Sepsis Action Taken by Nursing 04/26/24 17:20 04/26/24 18:15 04/26/24 18:54 Temperature 36.6 C Temperature Source Oral Pulse Rate Pulse Rate [Apical] 63 57 L Respiratory Rate 20 16 Respiratory Effort / Characteristics Non-Labored Spontaneous Non-Labored Spontaneous Respiratory Depth Normal Normal Respiratory Pattern Regular Blood Pressure [Left Arm] 138/72 116/62 Blood Pressure Mean [Left Arm] 94 80 Blood Pressure Position [Left Arm] Lying Pulse Oximetry 97 96 Oxygen Delivery Method Room Air Room Air Sepsis New/Unexplained Change in Mental Status N/A Sepsis Action Taken by Nursing No Action Required Laboratory Data 04/26/24 16:33 04/26/24 16:33 Lab Results 04/26/24 Range/Units 16:33 WBC 4.65 L (4.8-10.8) K/ul RBC 4.73 (4.70-6.10) M/uL Hgb 14.7 (14.0-18.0) g/dl Hct 42.7 (42.0-52.0) % MCV 90.3 (80.0-100.0) fL MCH 31.1 (25.0-34.0) pg MCHC 34.4 (32.0-36.0) g/dL RDW Std Deviation 45.2 (36.4-46.3) fL RDW Coeff of Miriam 13.6 (11.5-14.5) % Plt Count 168 (130-400) K/uL MPV 9.5 (9.4-12.4) fL Immature Gran % (Auto) 0.4 % Neut % (Auto) 68.8 % Lymph % (Auto) 19.4 % Kerr % (Auto) 9.2 % Eos % (Auto) 1.3 % Baso % (Auto) 0.9 % Neut # (Auto) 3.20 (1.40-6.50) K/uL Lymph # (Auto) 0.90 L (1.20-3.40) K/uL Kerr # (Auto) 0.43 (0.11-0.59) K/uL Eos # (Auto) 0.06 (0.00-0.50) K/uL Baso # (Auto) 0.04 (0.00-0.20) K/uL Immature Gran # (Auto) 0.02 (0.01-0.20) K/uL PT 11.5 (9.0-12.0) Seconds INR 1.1 (0.9-1.1) Sodium 139 (136-145) mmol/L Potassium 3.8 (3.5-5.1) mmol/L Chloride 103 (98-107) mmol/L Carbon Dioxide 25 (21-32) mmol/L Anion Gap 11 (3-11) BUN 24 H (6-23) mg/dl Creatinine 0.88 (0.6-1.4) mg/dl Est Cr Clr Drug Dosing 68.3 ml/min Est GFR ( Amer) 94.0 ml/min Est GFR (Non-Af Amer) 81.1 ml/min BUN/Creatinine Ratio 27.3 H (10-20) Glucose 95 (70-99(Fasting)) mg/dl Calcium 9.4 (8.6-10.3) mg/dl Total Bilirubin 1.0 (0.2-1.0) mg/dl AST 13 (13-39) U/L ALT 5 L (7-52) U/L Alkaline Phosphatase 75 (34-104) U/L Troponin I High Sens 7.7 (0-20) pg/ml Total Protein 6.5 (6.0-8.3) gm/dl Albumin 3.8 (3.4-5.0) gm/dl Globulin 2.7 (2.5-4.0) gm/dl Albumin/Globulin Ratio 1.4 (0.9-2) Lipase 10 L (11-82) U/L Administered Medications Discontinued Medications Sodium Chloride (Nss) 500 mls @ 999 mls/hr IV .Q31M STA Stop: 04/26/24 17:09 Last Infusion: 04/26/24 17:22 Dose: Infused Documented By: Admin: 04/26/24 16:42 Dose: 999 mls/hr Documented By: АНДРЕЙ Morphine Sulfate (Morphine Sulfate 4 Mg/Ml 1 Ml Carp\Vial) 4 mg IV NOW STA Stop: 04/26/24 18:30 Last Admin: 04/26/24 18:36 Dose: 4 mg Documented By: STEPHAN Ondansetron HCl (Ondansetron Inj 2 Mg/Ml 2 Ml Vial) 4 mg IV NOW STA Stop: 04/26/24 18:30 Last Admin: 04/26/24 18:36 Dose: 4 mg Documented By: STEPHAN Imaging Data Radiologist's Impression: Chest X-Ray 04/26/24 16:39 XR chest 1V portable CLINICAL HISTORY: AMS TECHNIQUE: Single frontal radiograph of the chest was obtained. Comparison: None available at the time of this dictation. FINDINGS: No lines and tubes are seen. The cardiomediastinal silhouette is normal. Mild atelectasis is seen. No evidence of pleural effusion or pneumothorax. IMPRESSION: No acute chest disease. ACT 112: Negative or not required by law. Electronically signed by: Gareth Salcido M.D. 04/26/2024 5:[address] 04/26/24 16:39 CT head/brain wo con CLINICAL HISTORY: AMS Technique: Contiguous axial CT images of the head were acquired from the base of the skull to the vertex without intravenous contrast administration. Images were viewed in brain, subdural and bone windows. Automated dose lowering techniques and/or adjustment according to patient size were utilized for this exam. Comparison: Comparison is made to CT head 04/15/2013 Findings: There are layering hyperdense to isodense subdural collections with associated mass effect with effacement of the lateral ventricles. Imaged portions of the paranasal sinuses and mastoid air cells are clear. The orbits appear normal. There are no acute fractures of the calvaria or scalp swelling. Impression: Findings are compatible with subacute bilateral subdural hemorrhage. Mass effect is seen without anitha herniation. ACT 112: Negative or not required by law. Electronically signed by: Gareth Salcido M.D. 04/26/2024 5:54 PM Discharge Plan Visit Data Chief Complaint: Illness Stated Complaint: AMS ED Provider: Александр Hurt Discharge Problem: Chronic subdural hematoma Forms Stand Alone Forms: My [facility] Prescriptions Prescriptions: No Action furosemide 40 mg tablet 40 mg PO .QOD Qty: 30 2RF Eliquis 5 mg tablet 5 mg PO BID Qty: 60 2RF Referrals Referrals: Lani Mariee MD [Primary Care Provider] -
[2024-04-26] MEDS: SODIUM CHLORIDE 0.9% 500 ML IV STA (16:42)
--- NOTE | 2024-04-26 17:13 | XRay Report ---
XR chest 1V portable CLINICAL HISTORY: AMS TECHNIQUE: Single frontal radiograph of the chest was obtained. Comparison: None available at the time of this dictation. FINDINGS: No lines and tubes are seen. The cardiomediastinal silhouette is normal. Mild atelectasis is seen. No evidence of pleural effusion or pneumothorax. IMPRESSION: No acute chest disease. ACT 112: Negative or not required by law. Electronically signed by: Gareth Salcido M.D. 04/26/2024 5:11 PM
[2024-04-26 17:22] LABS: Basophils # (auto) 0.04 K/uL (0.00-0.20); Basophils % (auto) 0.9 %; Eosinophils # (auto) 0.06 K/uL (0.00-0.50); Eosinophils % (auto) 1.3 %; Hematocrit (blood only) 42.7 % (42.0-52.0); Hemoglobin 14.7 g/dl (14.0-18.0); Immature Granulocytes # (auto) 0.02 K/uL (0.01-0.20); Immature Granulocytes % (auto) 0.4 %; Lymphocytes % (auto) 19.4 %; Mean Corpuscular Hemoglobin 31.1 pg (25.0-34.0); Mean Corpuscular Hgb Conc 34.4 g/dL (32.0-36.0); Mean Corpuscular Volume 90.3 fL (80.0-100.0); Mean Platelet Volume 9.5 fL (9.4-12.4); Monocytes # (auto) 0.43 K/uL (0.11-0.59); Monocytes % (auto) 9.2 %; Neutrophils % (auto) 68.8 %; Platelet Count 168 K/uL (130-400); RDW Coefficient of Variation 13.6 % (11.5-14.5); RDW Standard Deviation 45.2 fL (36.4-46.3); Red Blood Count 4.73 M/uL (4.70-6.10); White Blood Count 4.65 K/ul (4.8-10.8)
[2024-04-26 17:48] LABS: Albumin Globulin Ratio 1.4 (0.9-2); Albumin Level 3.8 gm/dl (3.4-5.0); BUN Creatinine Ratio 27.3 (10-20); Calcium 9.4 mg/dl (8.6-10.3); Creatinine Clr Calc Pharmacy 68.3 ml/min; Est GFR (Non-African American) 81.1 ml/min; Globulin 2.7 gm/dl (2.5-4.0); Potassium 3.8 mmol/L (3.5-5.1); Total Protein 6.5 gm/dl (6.0-8.3)
[2024-04-26 17:49] LABS: INR 1.1 (0.9-1.1); Prothrombin Time 11.5 Seconds (9.0-12.0)
[2024-04-26 17:54] LABS: Troponin I High Sensitivity 7.7 pg/ml (0-20)
--- NOTE | 2024-04-26 17:55 | CT Scan Report ---
CT head/brain wo con CLINICAL HISTORY: AMS Technique: Contiguous axial CT images of the head were acquired from the base of the skull to the debra asim without intravenous contrast administration. Images were viewed in brain, subdural and bone [facility]. Automated dose lowering techniques and/or adjustment according to patient size were utilized for this exam. Comparison: Comparison is made to CT head 04/15/2013 Findings: There are layering hyperdense to isodense subdural collections with associated mass effect with effac ement of the lateral ventricles. Imaged portions of the paranasal sinuses and mastoid air cells are clear. The orbits appear normal. There are no acute fractures of the calvaria or scalp swelling. Impression: Findings are compatible with subacute bilateral subdural hemorrhage. Mass effect is seen without patricia k herniation. ACT 112: Negative or not required by law. Electronically signed by: Gareth Salcido M.D. 04/26/2024 5:54 PM
[2024-04-26] MEDS: ONDANSETRON INJ 2 MG/ML 2 ML VIAL IV STA (18:36)
[2024-04-26] MEDS: MoRPHine SULFATE 4 MG/ML 1 ML CARP\\VIAL IV STA (18:36)
[2024-04-26] MEDS ORDERED: MoRPHine SULFATE 4 MG/ML 1 ML CARP\\VIAL IV PRN (19:54)
--- NOTE | 2024-04-26 20:02 | History & Physical Report ---
Date of Service April 26, 2024 Assessment & Plan (1) Bilateral subdural hematomas: (2) Chronic subdural hematoma: (3) Current use of cupola operator anticoagulation: (4) Atrial fibrillation: (5) DVT (deep venous thrombosis): (6) Hyperlipidemia: (7) Factor V Leiden mutation: (8) Severe headache: Plan Subacute bilateral subdural hematomas/severe headache- Initial head trauma was on April 01, with 1 week long admission at [facility] The patient was discharged to for potential hospice, however, family was told the patient did not qualify this. He is a need of 24-hour care Is brought to the emergency department due to severe headache, decreased oral intake, and inability to care for himself. Patient family would like pain control, and DNR/DNI status, with discussions regarding potential AUTOMATIC DOOR MECHANIC status Admission to medical surgical floor Acetaminophen 650 mg by mouth every 6 hours as needed for mild pain or fever [place] 5/325, 1 every 6 hours as needed for moderate pain Morphine sulfate 4 mg IV every 3 hours as needed for severe pain Adjust pain medication as needed Zofran 4 mg IV every 6 hours as needed Family reports that patient does try to eat a regular diet Patient has not had any history of seizures, and is not on seizure medications at this time Consult palliative care DVT history/IVC filter/atrial fibrillation- Family reports that patient has had his Eliquis resumed since 1 week after his initial diagnosis of subdural hematomas Last dose was 04/26 Consult hematology for their opinion regarding continuance of apixaban History of Present Illness Chief Complaint: The patient was brought to the emergency department via EMS due to concerns regarding confusion, worsening generalized headache, with history of subarachnoid hemorrhage and subdural hematoma noted initially after fall in April 01 Primary Care Provider: Lani Mariee MD The patient is an 78-year-old male with a past medical history including atrial fibrillation on Eliquis, acute kidney injury, bilateral lower extremity venous stasis DVT, hyperlipidemia, factor V Leiden, and bilateral subdural hematomas. The patient is brought to the emergency department due to worsening headache and confusion as noted by family. Patient initially had a fall on April 01, where he hit his head. He went to [facility] every 4 hours while awake and every 2 hours when necessary., He was admitted there for 1 week due to bilateral subdural hematomas, with stool and urinary incontinence and headache. The patient's family reports that over the past week he has had worsening headaches, decreased oral intake, and intermittently worsening confusion. Family reports that he was restarted back on his apixaban, 1 week after initial subdural hematomas, due to concerns regarding recurrence of DVTs. Patient reportedly has had an IVC filter since 2009 Allergies Allergy/AdvReac Type Severity Reaction Status Date / Time oxycodone AdvReac Intermediate NAUSEA,VOMITING, Verified 04/26/24 20:02 DAZED FEELING warfarin AdvReac Mild h/a from Verified 04/26/24 20:02 generic, use Brand name only Home Medications Medication Instructions Recorded Confirmed Type apixaban 5 mg tablet (Eliquis) 5 mg PO BID #60 tabs 11/12/23 04/26/24 Rx furosemide 40 mg tablet 40 mg PO DAILY 04/26/24 04/26/24 History Past Med/Surg History Problem List (Updated 04/27/24 @ 00:54 by Amor Corcoran MD) Severe headache Bilateral subdural hematomas Chronic subdural hematoma (Acute) Chronic venous stasis dermatitis Current use of cupola operator anticoagulation (Acute) Atrial fibrillation Acute kidney injury Cellulitis of left leg (Acute) Venous stasis of both lower extremities (Acute) Elevated blood pressure reading in office with diagnosis of hypertension (Acute) Hyperlipidemia (Chronic) custodian current use of anticoagulant Factor V Leiden mutation (Chronic) Right knee sprain (Acute) History of adenomatous polyp of colon History of DVT (deep vein thrombosis) (Acute) Medical History Aortic insufficiency Colon polyp Diverticulosis Hx of venous thrombosis and embolism Internal hemorrhoids Traumatic subdural hematoma Surgical History History of inguinal hernia repair History of esophagogastroduodenoscopy (EGD) History of colonoscopy Family History Father Cancer Mother Cancer Denies family history of Prostate cancer Breast cancer Colorectal cancer Social History (Updated 04/15/24 @ 09:35 by Teresa Green LPN) Smoking Status: Unknown if ever smoked Second Hand Exposure: No; Do You Dip or Chew Tobacco: No; Preferred Language: Cuban Communication Ability: Impaired Visual Impairment: No Limitations Hearing Ability: Normal Executive Manager Required: No Beliefs That Will Affect Care: None marital status: / Current Living Situation: Other Current Living Situation Comment: Pt confused - unable to obtain living situation current occupational status: retired Feels Safe at Home: Yes Diet: regular caffeine: Yes Dental Care, Regularly: No Physical Activity Frequency: Daily Seatbelt Use: always Assistive Devices: Glasses Review of Systems Review of Systems: Review of systems and HPI primarily provided by family as noted above. The patient this time is grimacing consistently of generalized headache. Physical Exam Physical Exam: The patient is awake, unresponsive, normocephalic and atraumatic, lying in bed and in moderate distress due to headache HEENT--PERRL, EOMI, mucous membranes and oropharynx dry. Neck--supple. No JVD. No bruits. Thyroid normal, trachea midline, no adenopathy. Heart--normal S1 and S2. No murmurs, rubs or gallops. Lungs--clear bilaterally, no respiratory distress, no accessory muscle use. Abdomen--normal bowel sounds and soft. Nontender. Nondistended, no hernias or masses, no organomegaly. Extremities-- No edema. Dermatologic--normal skin turgor, normal color, no abnormal lymph nodes, no rash. Neurologic--limited exam Rheumatologic-Limited exam Psychiatric--lethargic and unresponsive. Grimaces with headache pain Results & Data Results & Data Vital Signs (Past 12 Hours) Vital Signs Temp Pulse Pulse Resp BP Pulse Ox O2 Del Method 04/26/24 18:54 36.6 C 57 L 16 116/62 96 Room Air 04/26/24 18:15 63 20 138/72 97 Room Air 04/26/24 16:43 98 Room Air 04/26/24 16:34 69 20 144/77 H 100 Room Air 04/26/24 16:31 76 Laboratory Results Laboratory Results WBC 4.65 K/ul (4.8-10.8) L 04/26/24 16:33 RBC 4.73 M/uL (4.70-6.10) 04/26/24 16:33 Hgb 14.7 g/dl (14.0-18.0) 04/26/24 16:33 Hct 42.7 % (42.0-52.0) 04/26/24 16: MCV 90.3 fL (80.0-100.0) 04/26/24 16: MCH 31.1 pg (25.0-34.0) 04/26/24 16: MCHC 34.4 g/dL (32.0-36.0) 04/26/24 16: RDW Std Deviation 45.2 fL (36.4-46.3) 04/26/24 16: RDW Coeff of Miriam 13.6 % (11.5-14.5) 04/26/24 16: Plt Count 168 K/uL (130-400) 04/26/24 16: MPV 9.5 fL (9.4-12.4) 04/26/24 16: Immature Gran % (Auto) 0.4 % 04/26/24 16: Neut % (Auto) 68.8 % 04/26/24 16: Lymph % (Auto) 19.4 % 04/26/24 16: [place] % (Auto) 9.2 % 04/26/24 16:33 Eos % (Auto) 1.3 % 04/26/24 16: Baso % (Auto) 0.9 % 04/26/24: Neut # (Auto) 3.20 K/uL (1.40-6.50) 04/26/24 16: Lymph # (Auto) 0.90 K/uL (1.20-3.40) L 04/26/24: [place] # (Auto) 0.43 K/uL (0.11-0.59) 04/26/24 16: Eos # (Auto) 0.06 K/uL (0.00-0.50) 04/26/24 16: Baso # (Auto) 0.04 K/uL (0.00-0.20) 04/26/24 16: Immature Gran # (Auto) 0.02 K/uL (0.01-0.20) 04/26/24 16: PT 11.5 Seconds (9.0-12.0) 04/26/24 16: INR 1.1 (0.9-1.1) 04/26/24 16:33 Sodium 139 mmol/L (136-145) 04/26/24 16:33 Potassium 3.8 mmol/L (3.5-5.1) 04/26/24 16:33 Chloride 103 mmol/L (98-107) 04/26/24 16:33 Carbon Dioxide 25 mmol/L (21-32) 04/26/24 16:33 Anion Gap 11 (3-11) 04/26/24 16:33 BUN 24 mg/dl (6-23) H 04/26/24 16:33 Creatinine 0.88 mg/dl (0.6-1.4) 04/26/24 16:33 Est Cr Clr Drug Dosing 68.3 ml/min 04/26/24 16:33 Est GFR ( Amer) 94.0 ml/min 04/26/24 16:33 Est GFR (Non-Af Amer) 81.1 ml/min 04/26/24 16:33 BUN/Creatinine Ratio 27.3 (10-20) H 04/26/24 16:33 Glucose 95 mg/dl (70-99(Fasting)) 04/26/24 16:33 Calcium 9.4 mg/dl (8.6-10.3) 04/26/24 16:33 Total Bilirubin 1.0 mg/dl (0.2-1.0) 04/26/24 16:33 AST 13 U/L (13-39) 04/26/24 16:33 ALT 5 U/L (7-52) L 04/26/24 16:33 Alkaline Phosphatase 75 U/L (34-104) 04/26/24 16:33 Troponin I High Sens 7.7 pg/ml (0-20) 04/26/24 16:33 Total Protein 6.5 gm/dl (6.0-8.3) 04/26/24 16:33 Albumin 3.8 gm/dl (3.4-5.0) 04/26/24 16:33 Globulin 2.7 gm/dl (2.5-4.0) 04/26/24 16:33 Albumin/Globulin Ratio 1.4 (0.9-2) 04/26/24 16:33 Lipase 10 U/L (11-82) L 04/26/24 16:33 Impressions Chest X-Ray 04/26/24 16:39 XR chest 1V portable CLINICAL HISTORY: AMS TECHNIQUE: Single frontal radiograph of the chest was obtained. Comparison: None available at the time of this dictation. FINDINGS: No lines and tubes are seen. The cardiomediastinal silhouette is normal. Mild atelectasis is seen. No evidence of pleural effusion or pneumothorax. IMPRESSION: No acute chest disease. ACT 112: Negative or not required by law. Electronically signed by: Gareth Salcido M.D. 04/26/2024 5:[address] 04/26/24 16:39 CT head/brain wo con CLINICAL HISTORY: AMS Technique: Contiguous axial CT images of the head were acquired from the base of the skull to the vertex without intravenous contrast administration. Images were viewed in brain, subdural and bone windows. Automated dose lowering techniques and/or adjustment according to patient size were utilized for this exam. Comparison: Comparison is made to CT head 04/15/2013 Findings: There are layering hyperdense to isodense subdural collections with associated mass effect with effacement of the lateral ventricles. Imaged portions of the paranasal sinuses and mastoid air cells are clear. The orbits appear normal. There are no acute fractures of the calvaria or scalp swelling. Impression: Findings are compatible with subacute bilateral subdural hemorrhage. Mass effect is seen without anitha herniation. ACT 112: Negative or not required by law. Electronically signed by: Gareth Salcido M.D. 04/26/2024 5:54 PM Code Status & VTE Plan Code Status DNR/DNI. Family is discussing AUTOMATIC DOOR MECHANIC. VTE Prophylaxis Plan VTE Prophylaxis will be ordered: Yes PG Care Time/CCT Total # of Minutes Spent Total Time Spent with Patient: Total time spent is greater than 50% in coordination of care (as documented) at patient's floor/unit and/or counseling patient: Coding Level of Care Code 63925 INT INP/OBS CARE 255MIN Diagnoses Bilateral subdural hematomas S06.5XAA Chronic subdural hematoma I62.03 Current use of cupola operator anticoagulation Z79.01 Atrial fibrillation I48.91 DVT (deep venous thrombosis) I82.409 Hyperlipidemia E78.5 Factor V Leiden mutation D68.51 Severe headache R51.9
[2024-04-26] MEDS: HYDROCODONE/ACETAMOPHEN 5/325MG TAB PO PRN (20:24)
[2024-04-26] MEDS ORDERED: ONDANSETRON INJ 2 MG/ML 2 ML VIAL IV PRN (22:57)
[2024-04-26] MEDS ORDERED: ACETAMINOPHEN 325 MG TAB PO PRN (22:57)
[2024-04-27 07:08] VITALS: BP 105/62; PULSE 65; RESP 18; TEMP 97.7; O2SAT 94
[2024-04-27 07:24] LABS: Basophils # (auto) 0.04 K/uL (0.00-0.20); Basophils % (auto) 0.9 %; Eosinophils # (auto) 0.11 K/uL (0.00-0.50); Eosinophils % (auto) 2.3 %; Hemoglobin 13.9 g/dl (14.0-18.0); Immature Granulocytes # (auto) 0.03 K/uL (0.01-0.20); Immature Granulocytes % (auto) 0.6 %; Lymphocytes # (auto) 0.67 K/uL (1.20-3.40); Lymphocytes % (auto) 14.3 %; Mean Corpuscular Hemoglobin 30.8 pg (25.0-34.0); Mean Corpuscular Hgb Conc 33.9 g/dL (32.0-36.0); Mean Corpuscular Volume 90.7 fL (80.0-100.0); Mean Platelet Volume 9.7 fL (9.4-12.4); Monocytes # (auto) 0.37 K/uL (0.11-0.59); Monocytes % (auto) 7.9 %; Neutrophils # (auto) 3.47 K/uL (1.40-6.50); Platelet Count 168 K/uL (130-400); RDW Coefficient of Variation 13.8 % (11.5-14.5); RDW Standard Deviation 45.8 fL (36.4-46.3); Red Blood Count 4.52 M/uL (4.70-6.10); White Blood Count 4.69 K/ul (4.8-10.8)
[2024-04-27 07:44] LABS: Albumin Level 3.6 gm/dl (3.4-5.0); BUN Creatinine Ratio 27.4 (10-20); Creatinine Clr Calc Pharmacy 74.3 ml/min; Est GFR (African American) 95.8 ml/min; Est GFR (Non-African American) 82.7 ml/min; Magnesium 2.1 mg/dl (1.7-2.4); Phosphorus 4.1 mg/dl (2.5-4.9); Potassium 3.9 mmol/L (3.5-5.1)
--- NOTE | 2024-04-27 08:21 | Hospitalist Progress Note ---
Date of Service April 27, 2024 Assessment & Plan (1) Bilateral subdural hematomas: Plan: Subacute bilateral subdural hematomas/severe headache- - Initial head trauma was on April 01, with 1 week long admission at [facility]. The patient was discharged to for potential hospice, however, family was told the patient did not qualify this. He is in need of 24-hour care. - Presented to ED due to severe headache, decreased oral intake, and inability to care for himself. - Patient has not had any history of seizures, and is not on seizure medications at this time. - Received Prevnar 20 vaccine in ED. - Patient's family would like pain control, and DNR/DNI status, with discussions regarding potential SERVICE NOW DEVELOPER status. - Palliative care consulted, appreciate recommendations and guidance. > Family has elected for SERVICE NOW DEVELOPER. GIP eval via [facility]. Family meeting scheduled for 1230 with palliative care on 04/28. - Acetaminophen 650 mg every 6 hours as needed for mild pain or fever - [place] 5/325, every 6 hours as needed for moderate pain - Morphine sulfate 4 mg IV every 3 hours as needed for severe pain - Zofran 4 mg IV every 6 hours as needed (2) Current use of termite control service representative anticoagulation: Plan: DVT history/IVC filter/atrial fibrillation- - Family reports that patient was restarted back on his apixaban, 1 week after initial subdural hematomas, due to concerns regarding recurrence of DVTs. Last dose was 04/26/24. - Patient reportedly has had an IVC filter since 2009. > Therefore, my concern for a traveling DVT is low, while the concern of furt her hemorrhaging is greater if resumed on apixaban. - Consulted hematology for their opinion regarding continuance of apixaban. Plan Patient is now SERVICE NOW DEVELOPER status Discussed case with palliative care Discussed discharge planning with case management CODE STATUS: DNR/DNI Admission and Anticipated Discharge Date Admission Date: April 26, 2024 Subjective Attempted to see patient this morning however he was sleeping at that time. I returned later in the afternoon, he was still very drowsy and kept falling asleep during my visit. No family was present at that time. I did discuss the case with the palliative care provider, who informed me there is a family meeting scheduled for 1230 tomorrow, 04/28/2024. From her conversation with the family today, they have elected SERVICE NOW DEVELOPER status. Physical Exam Physical Exam: General: Very drowsy, continuously falling asleep during my evaluation. Appears uncomfortable. Chronically ill-appearing, bitemporal wasting. Skin: The skin was without rashes, erythema, edema, or bruising. Cardiac: Regular rate and rhythm without murmurs gallops or rubs. Pulm: Diminished breath sounds at bases bilaterally. No wheezing or crackles. No respiratory distress. 94% on room air. Abdominal: Soft, nontender, nondistended. Bowel sounds present. Neuro: Awakens to verbal stimuli but lethargic. No focal neurological deficits. Results & Data Results & Data Vital Signs (Past 12 Hours) Vital Signs Temp Pulse Resp BP Pulse Ox O2 Del Method 04/27/24 07:07 36.5 C 65 18 105/62 94 Room Air 04/26/24 22:57 36.3 C L 81 17 149/74 H 98 Room Air 04/26/24 21:30 63 18 128/73 96 Room Air 04/26/24 20:22 36.9 C 66 18 130/82 98 Room Air Laboratory Results Reviewed CBC Reviewed CMP Diagnostic Findings Reviewed CXR Reviewed head CT Chest X-Ray 04/26/24 16:39 XR chest 1V portable CLINICAL HISTORY: AMS TECHNIQUE: Single frontal radiograph of the chest was obtained. Comparison: None available at the time of this dictation. FINDINGS: No lines and tubes are seen. The cardiomediastinal silhouette is normal. Mild atelectasis is seen. No evidence of pleural effusion or pneumothorax. IMPRESSION: No acute chest disease. ACT 112: Negative or not required by law. Electronically signed by: Gareth Salcido M.D. 04/26/2024 5:[address] 04/26/24 16:39 CT head/brain wo con CLINICAL HISTORY: AMS Technique: Contiguous axial CT images of the head were acquired from the base of the skull to the vertex without intravenous contrast administration. Images were viewed in brain, subdural and bone windows. Automated dose lowering techniques and/or adjustment according to patient size were utilized for this exam. Comparison: Comparison is made to CT head 04/15/2013 Findings: There are layering hyperdense to isodense subdural collections with associated mass effect with effacement of the lateral ventricles. Imaged portions of the paranasal sinuses and mastoid air cells are clear. The orbits appear normal. There are no acute fractures of the calvaria or scalp swelling. Impression: Findings are compatible with subacute bilateral subdural hemorrhage. Mass effect is seen without anitha herniation. ACT 112: Negative or not required by law. Electronically signed by: Gareth Salcido M.D. 04/26/2024 5:54 PM PG Care Time/CCT Total # of Minutes Spent Total Time Spent with Patient: Total time spent is greater than 50% in coordination of care (as documented) at patient's floor/unit and/or counseling patient: Coding Level of Care Code 42918 SUB INP/OBS CARE 2/35MIN Diagnoses Bilateral subdural hematomas S06.5XAA Current use of termite control service representative anticoagulation Z79.01
--- NOTE | 2024-04-27 09:07 | Electrocardiogram Report ---
Test Reason : Blood Pressure : */* mmHG Vent. Rate : 69 BPM Atrial Rate : 69 BPM P-R Int : 196 ms QRS Dur : 84 ms QT Int : 408 ms P-R-T Axes : 55 55 68 degrees QTcB Int : 437 ms Normal sinus rhythm Normal ECG When compared with ECG of 24-Nov-2023 19:25, Premature atrial complexes are no longer Present Confirmed by Esau Martinez ([id number]) on 04/27/2024 9:07:16 AM Referred By: REFERRED SELF Confirmed By: Esau Martinez
--- NOTE | 2024-04-27 11:21 | Palliative Care Consultation ---
Date of Consultation April 27, 2024 Assessment & Plan (1) Pain head: (2) Weakness generalized: (3) Frailty syndrome in geriatric patient: (4) Palliative care by specialist: (5) Discussion about advance care planning held with family member: ACP d/w family earlier this AM, please see separate note (6) Comfort measures only status: Plan PROCESSING MANAGER Fam mt tomorrow afternoon to disuss home hospice Family would like GIP eval with [facility]/see ACP discussion from AM Thank you for allowing us to participate in the ongoing care of this patient. Please page with any additional concerns. Alec Stoll DNP Director, Palliative Medicine History of Present Illness Reason for Consultation: discuss hospice eligibility Attending Physician: Marquis Alvarez MD History of Present Illness Edwin Ayala is an 78yo gentleman admitted as follows: "Subacute bilateral subdural hematomas/severe headache- Initial head trauma was on April 01, with 1 week long admission at [facility] The patient was discharged to for potential hospice, however, family was told the patient did not qualify this. He is a need of 24-hour care Is brought to the emergency department due to severe headache, decreased oral intake, and inability to care for himself. Patient family would like pain control, and DNR/DNI status, with discussions regarding potential PROCESSING MANAGER status Admission to medical surgical floor Acetaminophen 650 mg by mouth every 6 hours as needed for mild pain or fever [place] 5/325, 1 every 6 hours as needed for moderate pain Morphine sulfate 4 mg IV every 3 hours as needed for severe pain Adjust pain medication as needed Zofran 4 mg IV every 6 hours as needed Family reports that patient does try to eat a regular diet Patient has not had any history of seizures, and is not on seizure medications at this time Consult palliative care" Mr Valencia was drowsy at time of my visit He is very weak and frail appearing mild distress noted at time of visit - grimacing and wincing at times No family present, see ACP meeting earlier this morning Allergies Allergy/AdvReac Type Severity Reaction Status Date / Time oxycodone AdvReac Intermediate NAUSEA,VOMITING, Verified 04/26/24 20:02 DAZED FEELING warfarin AdvReac Mild h/a from Verified 04/26/24 20:02 generic, use Brand name only Home Medications Medication Instructions Recorded Confirmed Type apixaban 5 mg tablet (Eliquis) 5 mg PO BID #60 tabs 11/12/23 04/26/24 Rx furosemide 40 mg tablet 40 mg PO DAILY 04/26/24 04/26/24 History Patient History Medical History Aortic insufficiency Colon polyp Diverticulosis Hx of venous thrombosis and embolism Internal hemorrhoids Traumatic subdural hematoma Surgical History History of inguinal hernia repair History of esophagogastroduodenoscopy (EGD) History of colonoscopy Family History Father Cancer Mother Cancer Denies family history of Prostate cancer Breast cancer Colorectal cancer Social History (Updated 04/15/24 @ 09:35 by Teresa Green LPN) Smoking Status: Unknown if ever smoked Second Hand Exposure: No; Do You Dip or Chew Tobacco: No; Preferred Language: [place] Communication Ability: Impaired Visual Impairment: No Limitations Hearing Ability: Normal Technician Support Engineer Required: No Beliefs That Will Affect Care: None marital status: / Current Living Situation: Other Current Living Situation Comment: Pt confused - unable to obtain living situation current occupational status: retired Feels Safe at Home: Yes Diet: regular caffeine: Yes Dental Care, Regularly: No Physical Activity Frequency: Daily Seatbelt Use: always Assistive Devices: Hospital Bed Review of Systems Review of Systems: All systems reviewed & are unremarkable except as noted in Subjective Physical Exam Physical Exam: Drowsy but wakes to voice, occ grimacing and wincing noted, appears uncomfortable Bitemp wasting PERRLA MM dry Dentition fair neck without stridor, no thyromegaly S1S2, no overt JVD Chest diminished bilat, no wheeze or crackles Abd soft, NTP, BS diminished Gen weakness, no BLE edema Skin pink/warm to touch Awakens to voice, eyes open to verbal, follows some movement around the room Answers a few yes/no questions Results & Data Vital Signs (Past 12 Hours) Vital Signs Temp Pulse Resp BP Pulse Ox O2 Del Method 04/27/24 07:07 36.5 C 65 18 105/62 94 Room Air Laboratory Results 04/27/24 04/26/24 Range/Units 06:26 16:33 WBC 4.69 L 4.65 L (4.8-10.8) K/ul RBC 4.52 L 4.73 (4.70-6.10) M/uL Hgb 13.9 L 14.7 (14.0-18.0) g/dl Hct 41.0 L 42.7 (42.0-52.0) % MCV 90.7 90.3 (80.0-100.0) fL MCH 30.8 31.1 (25.0-34.0) pg MCHC 33.9 34.4 (32.0-36.0) g/dL RDW Std Deviation 45.8 45.2 (36.4-46.3) fL RDW Coeff of Miriam 13.8 13.6 (11.5-14.5) % Plt Count 168 168 (130-400) K/uL MPV 9.7 9.5 (9.4-12.4) fL Immature Gran % (Auto) 0.6 0.4 % Neut % (Auto) 74.0 68.8 % Lymph % (Auto) 14.3 19.4 % Wise % (Auto) 7.9 9.2 % Eos % (Auto) 2.3 1.3 % Baso % (Auto) 0.9 0.9 % Neut # (Auto) 3.47 3.20 (1.40-6.50) K/uL Lymph # (Auto) 0.67 L 0.90 L (1.20-3.40) K/uL Wise # (Auto) 0.37 0.43 (0.11-0.59) K/uL Eos # (Auto) 0.11 0.06 (0.00-0.50) K/uL Baso # (Auto) 0.04 0.04 (0.00-0.20) K/uL Immature Gran # (Auto) 0.03 0.02 (0.01-0.20) K/uL PT 11.5 (9.0-12.0) Seconds INR 1.1 (0.9-1.1) Sodium 141 139 (136-145) mmol/L Potassium 3.9 3.8 (3.5-5.1) mmol/L Chloride 105 103 (98-107) mmol/L Carbon Dioxide 30 25 (21-32) mmol/L Anion Gap 6 11 (3-11) BUN 23 24 H (6-23) mg/dl Creatinine 0.84 0.88 (0.6-1.4) mg/dl Est Cr Clr Drug Dosing 74.3 68.3 ml/min Est GFR ( Amer) 95.8 94.0 ml/min Est GFR (Non-Af Amer) 82.7 81.1 ml/min BUN/Creatinine Ratio 27.4 H 27.3 H (10-20) Glucose 95 95 (70-99(Fasting)) mg/dl Calcium 9.0 9.4 (8.6-10.3) mg/dl Phosphorus 4.1 (2.5-4.9) mg/dl Magnesium 2.1 (1.7-2.4) mg/dl Total Bilirubin 1.0 (0.2-1.0) mg/dl AST 13 (13-39) U/L ALT 5 L (7-52) U/L Alkaline Phosphatase 75 (34-104) U/L Troponin I High Sens 7.7 (0-20) pg/ml Total Protein 6.5 (6.0-8.3) gm/dl Albumin 3.6 3.8 (3.4-5.0) gm/dl Globulin 2.7 (2.5-4.0) gm/dl Albumin/Globulin Ratio 1.4 (0.9-2) Lipase 10 L (11-82) U/L Diagnostic Findings Chest X-Ray 04/26/24 16:39 XR chest 1V portable CLINICAL HISTORY: AMS TECHNIQUE: Single frontal radiograph of the chest was obtained. Comparison: None available at the time of this dictation. FINDINGS: No lines and tubes are seen. The cardiomediastinal silhouette is normal. Mild atelectasis is seen. No evidence of pleural effusion or pneumothorax. IMPRESSION: No acute chest disease. ACT 112: Negative or not required by law. Electronically signed by: Gareth Salcido M.D. 04/26/2024 5:[address] 04/26/24 16:39 CT head/brain wo con CLINICAL HISTORY: AMS Technique: Contiguous axial CT images of the head were acquired from the base of the skull to the vertex without intravenous contrast administration. Images were viewed in brain, subdural and bone windows. Automated dose lowering techniques and/or adjustment according to patient size were utilized for this exam. Comparison: Comparison is made to CT head 04/15/2013 Findings: There are layering hyperdense to isodense subdural collections with associated mass effect with effacement of the lateral ventricles. Imaged portions of the paranasal sinuses and mastoid air cells are clear. The orbits appear normal. There are no acute fractures of the calvaria or scalp swelling. Impression: Findings are compatible with subacute bilateral subdural hemorrhage. Mass effect is seen without anitha herniation. ACT 112: Negative or not required by law. Electronically signed by: Gareth Salcido M.D. 04/26/2024 5:54 PM PG Care Time/CCT Total # of Minutes Spent Total Time Spent with Patient: Total time spent is greater than 50% in coordination of care (as documented) at patient's floor/unit and/or counseling patient: I spent 65 minutes overall addressing this case: 15 min in medical data review/discussion with referring provider(s) and/or preparation for the visit 20 min in direct interaction with the patient/exam 00 min in Advance Care Planning/Goals of Care discussions as detailed above in note (must be >16min) 10 min in subsequent review and synthesis of assessment and plan 20 min communicating with other providers regarding the patient's case: care mgt, primary, nursing [place] [address] IN/OBS CONSULT LVL 4,60M Patient Type New History Comprehensive Exam Comprehensive Medical Decision Making High Complexity Diagnoses Pain head R51.9 Weakness generalized R53.1 Frailty syndrome in geriatric patient R54 Palliative care by specialist Z51.5 Discussion about advance care planning held with family member Z71.0 Comfort measures only status Z51.5
--- NOTE | 2024-04-27 11:41 | Palliative Family Discussion ---
Date of Service April 27, 2024 Patient Directed Conference Time of Meetin-1130am Participants: Jaimee Stoll DNP Patient participation: no Patient Support System yes Meeting Location: telephonic A telephonic ACP meeting was held for ЮЛИЯ AYALA. This meeting was necessary for determining the appropriate course of treatment. Topics of Discussion Topics of Discussion: I spoke with Mr Ayala's family. They elect comfort care and would appreciate a GIP eval with [facility]. He was initially dc home with [facility] but when they came to admit him to service, they determined him to be too well and declined the intake. Family is very frustrated with that bc all the supportive care/DME etc was removed and they had no support/no VNS etc. They live in [place], pt would want to be home and so they are looking for options back home with hospice via [facility] agency. Son is working today so we agreed to meet in the room tomorrow at 1230 (I am in clinic until then tomorrow) and we will go from there. They are in agreement with TELEHEALTH COORDINATOR and I have written orders for comfort care status. they will be coming in tonight after son gets off work, so likely not till around 7pm-carmella. Other Content of Meetin. Opportunity given for participants to speak and ask questions. 2. Participants were assured of attention to patient comfort. 3. Reassurance provided. 4. Support was provided for informed, good-angelina decisions. 5. Emotions expressed by family were acknowledged and addressed. TS 25min in ACP Thank you for allowing us to participate in the ongoing care of this patient. Please page with any additional concerns. Alec Stoll DNP Director, Palliative Medicine
[2024-04-27] MEDS: PNEUMOCOCCAL VACCINE (PCV20) 20-VAL CONJ-DIP CRM/PF 0.5 ML SYR IM ONE (11:58)
--- NOTE | 2024-04-28 15:14 | Palliative Care Progress Note ---
Date of Service April 28, 2024 Assessment & Plan (1) Weakness generalized: (2) Severe headache: (3) Comfort measures only status: (4) Frailty syndrome in geriatric patient: (5) Need for comfort care: (6) Discussion about advance care planning held with family member: Plan: together with [facility] and [facility] team, we met with pt son/POA and dtr in law face to face x 25min Reviewed clinical updates, bilat subacute SDH, not new this admission --> likely occurred prior to admission rational for d/c AC reviewed Hospice guidelines and services reviewed family in agreement and desire hospice at home tentative dc for Thursday vs Thursday depending on family's availability extensive support and reassurance provided all questions re what to expect, anticipated survival and changes to expect reviewed with family at their request (7) Palliative care by specialist: (8) Pain head: Plan as above Thank you for allowing us to participate in the ongoing care of this patient. Please page with any additional concerns. Alec Stoll DNP Director, Palliative Medicine Admission and Anticipated Discharge Date Admission Date: April 27, 2024 Results & Data Vital Signs (Past 12 Hours) Vital Signs O2 Del Method 04/28/24 07:30 Room Air PG Care Time/CCT Total # of Minutes Spent Total Time Spent with Patient: Total time spent is greater than 50% in coordination of care (as documented) at patient's floor/unit and/or counseling patient: I spent 90 minutes overall addressing this case: 10min in medical data review/discussion with referring provider(s) and/or preparation for the visit 15 min in direct interaction with the patient/exam 25 min in Advance Care Planning/Goals of Care discussions as detailed above in note (must be >16min) 15 min in subsequent review and synthesis of assessment and plan 25 min communicating with other providers regarding the patient's case: hospice, nursing, care mgt, primary team Advanced Care Planning 38171 Advanced Care Planning 30 Min [place] [address] SUB INP/OBS CARE 3/50MIN (25 - SIGNIFICANT, SEPARATELY IDENTIFIABLE ) Patient Type Established Medical Decision Making High Complexity Diagnoses Weakness generalized R53.1 Severe headache R51.9 Comfort measures only status Z51.5 Frailty syndrome in geriatric patient R54 Need for comfort care Discussion about advance care planning held with family member Z71.0 Palliative care by specialist Z51.5 Pain head R51.9 Additional Codes Advanced Care Planning - 64505 Advanced Care Planning 30 Min: 41384 Advanced Care Planning 30 Min ([id number])
--- NOTE | 2024-04-28 17:05 | Hospitalist Progress Note ---
Date of Service April 28, 2024 Assessment & Plan (1) Bilateral subdural hematomas: Plan: Subacute bilateral subdural hematomas/severe headache- - Initial head trauma was on April 01, with 1 week long admission at [facility]. The patient was discharged to for potential hospice, however, family was told the patient did not qualify this. He is in need of 24-hour care. - Presented to ED due to severe headache, decreased oral intake, and inability to care for himself. - Patient has not had any history of seizures, and is not on seizure medications at this time. - Received Prevnar 20 vaccine in ED. - Patient's family would like pain control, and DNR/DNI status, with discussions regarding potential BUSINESS PRACTICES SUPERVISOR status. - Palliative care consulted, appreciate recommendations and guidance. > Family has elected for BUSINESS PRACTICES SUPERVISOR. > Plan to discharge home with hospice services 04/29/24. Transport scheduled for 0800. - Acetaminophen 650 mg every 6 hours as needed for mild pain or fever - [place] 5/325, every 6 hours as needed for moderate pain - Morphine sulfate 4 mg IV every 3 hours as needed for severe pain - Zofran 4 mg IV every 6 hours as needed (2) Current use of director long term care anticoagulation: Plan: DVT history/IVC filter/atrial fibrillation- - Family reports that patient was restarted back on his apixaban, 1 week after initial subdural hematomas, due to concerns regarding recurrence of DVTs. Last dose was 04/26/24. - Patient reportedly has had an IVC filter since 2009. > Therefore, my concern for a traveling DVT is low, while the concern of further hemorrhaging is greater if resumed on apixaban. - Apixaban discontinued. Plan Discussed case with palliative care and [facility] Updated family at bedside Discussed discharge planning with case management Plan to discharge home with hospice services 04/29/2024 at 8 AM CODE STATUS: DNR/DNI Admission and Anticipated Discharge Date Admission Date: April 27, 2024 Subjective Patient seen and evaluated at bedside during family meeting with palliative care, [facility] team, and patient's son and [id number]. Patient's pain is controlled, no acute complaints at this time. Plan is to be discharged home with hospice services tomorrow, 04/29/2024, at 8 AM. Physical Exam Physical Exam: General: Chronically ill-appearing, bitemporal wasting. Does not appear to be in acute distress. Skin: The skin was without rashes, erythema, edema, or bruising. Cardiac: Regular rate and rhythm without murmurs gallops or rubs. Pulm: Diminished breath sounds at bases bilaterally. No wheezing or crackles. No respiratory distress. 94% on room air. Abdominal: Soft, nontender, nondistended. Bowel sounds present. Neuro: A&Ox1. No focal neurological deficits. Results & Data Results & Data Vital Signs (Past 12 Hours) Vital Signs O2 Del Method 04/28/24 07:30 Room Air PG Care Time/CCT Total # of Minutes Spent Total Time Spent with Patient: Total time spent is greater than 50% in coordination of care (as documented) at patient's floor/unit and/or counseling patient: Coding Level of Care Code 57560 SUB INP/OBS CARE 3/50MIN Diagnoses Bilateral subdural hematomas S06.5XAA Current use of group home anticoagulation Z79.01
--- NOTE | 2024-04-29 09:43 | Discharge Summary ---
Discharge Summary Date of Service April 29, 2024 Principal Dx & Hospital Course #1 = Principal Diagnosis (1) Bilateral subdural hematomas: Subacute bilateral subdural hematomas/severe headache- - Initial head trauma was on April 01, with 1 week long admission at [facility]. The patient was discharged to for potential hospice, however, family was told the patient did not qualify this. He is in need of 24-hour care. - Presented to ED due to severe headache, decreased oral intake, and inability to care for himself in setting of Brain compression due to subacute bilateral subdural hematomas. - Patient has not had any history of seizures, and is not on seizure medications at this time. - Received Prevnar 20 vaccine in ED. - Patient's family would like pain control, and DNR/DNI status, with discussions regarding potential MORTGAGE CLERK status. - Palliative care consulted, appreciate recommendations and guidance. > Family has elected for MORTGAGE CLERK. > Discharged home with hospice services 04/29/24. (2) Current use of rat exterminator anticoagulation: DVT history/IVC filter/atrial fibrillation- - Family reports that patient was restarted back on his apixaban, 1 week after initial subdural hematomas, due to concerns regarding recurrence of DVTs. Last dose was 04/26/24. - Patient reportedly has had an IVC filter since 2009. > Therefore, my concern for a traveling DVT is low, while the concern of further hemorrhaging is greater if resumed on apixaban. - Apixaban discontinued. Plan Discharged home with hospice services 04/29/2024 CODE STATUS: DNR/DNI Notes For Next Care Provider Patient presented with severe headache, decreased oral intake, and inability to care for himself in setting of subacute bilateral subdural hematomas. Patient's family met with palliative care and decision was made to transition to comfort measures only. Patient was discharged home with [facility] on 04/29/2024. Medication Changes From Visit All home meds were discontinued and comfort measure meds were put in place. Admission HPI Per Admitting Provider The patient is an 78-year-old male with a past medical history including atrial fibrillation on Eliquis, acute kidney injury, bilateral lower extremity venous stasis DVT, hyperlipidemia, factor V Leiden, and bilateral subdural hematomas. The patient is brought to the emergency department due to worsening headache and confusion as noted by family. Patient initially had a fall on April 01, where he hit his head. He went to [facility] every 4 hours while awake and every 2 hours when necessary., He was admitted there for 1 week due to bilateral subdural hematomas, with stool and urinary incontinence and headache. The patient's family reports that over the past week he has had worsening headaches, decreased oral intake, and intermittently worsening confusion. Family reports that he was restarted back on his apixaban, 1 week after initial subdural hematomas, due to concerns regarding recurrence of DVTs. Patient reportedly has had an IVC filter since 2009 Admission Exam Per Admitting Provider The patient is awake, unresponsive, normocephalic and atraumatic, lying in bed and in moderate distress due to headache HEENT--PERRL, EOMI, mucous membranes and oropharynx dry. Neck--supple. No JVD. No bruits. Thyroid normal, trachea midline, no adenopathy. Heart--normal S1 and S2. No murmurs, rubs or gallops. Lungs--clear bilaterally, no respiratory distress, no accessory muscle use. Abdomen--normal bowel sounds and soft. Nontender. Nondistended, no hernias or masses, no organomegaly. Extremities-- No edema. Dermatologic--normal skin turgor, normal color, no abnormal lymph nodes, no rash. Neurologic--limited exam Rheumatologic-Limited exam Psychiatric--lethargic and unresponsive. Grimaces with headache pain Discharge Exam General: Chronically ill-appearing, bitemporal wasting. Does not appear to be in acute distress. Skin: The skin was without rashes, erythema, edema, or bruising. Cardiac: Regular rate and rhythm without murmurs gallops or rubs. Pulm: Diminished breath sounds at bases bilaterally. No wheezing or crackles. No respiratory distress. 94% on room air. Abdominal: Soft, nontender, nondistended. Bowel sounds present. Neuro: A&Ox1. No focal neurological deficits. Discharge Plan Discharge Items Patient Disposition: Hospice - Home Reason For Visit: B/L SUBACUTE SUBDURAL HEMATOMA Discharge Diagnosis: Subacute bilateral subdural hematomas Activity: As commented below Activity Comment: Activity as tolerated Non-emergency contact: Primary Care Provider Call non-emergency contact if: you have any medication questions Follow-up/Referrals: Lani Mariee MD [Primary Care Provider] - Diet: Regular Addtl Attending Provider Instructions: [facility]: Mr. Ayala presented with severe headache, decreased oral intake, and inability to care for himself in the setting of bilateral subacute subdural hematomas. His family met with our palliative care provider where they had a discussion and ultimately elected for comfort measures only and to have the patient return home with your hospice services. His home medications have been discontinued. He has not been using any of his as needed comfort medications. Pending Studies at Discharge: No Stand-Alone Forms: My [facility] [employer] Medications and DC Order Prescriptions: Discontinued Eliquis 5 mg tablet 5 mg PO BID Qty: 60 2RF furosemide 40 mg tablet 40 mg PO DAILY Discharge Orders: Discharge Order (Routine); Ordered 04/29/24 Ordered By: Kendra Gambino Admission Data Admit Date/Time: 04/27/24 15:18 Attending Provider: Marquis Alvarez Admit Provider: Amor Corcoran Primary Care Provider: Lani Mariee Other Providers: Amor Corcoran; Jaimee Stoll; [facility] Other Interventions: Discharge Summary Assessment (RN) Last Done: 04/29/24 07:35 Hospital Stay Data Consultations 04/26/24 18:58 ED Decision to Admit Stat 04/27/24 04:38 Consult Palliative Care Routine Diagnostic Imagining Performed Laboratory Results WBC 4.69 K/ul (4.8-10.8) L 04/27/24 06:26 RBC 4.52 M/uL (4.70-6.10) L 04/27/24 06:26 Hgb 13.9 g/dl (14.0-18.0) L 04/27/24 06:26 Hct 41.0 % (42.0-52.0) L 04/27/24 06:26 MCV 90.7 fL (80.0-100.0) 04/27/24 06:26 MCH 30.8 pg (25.0-34.0) 04/27/24 06:26 MCHC 33.9 g/dL (32.0-36.0) 04/27/24 06:26 RDW Std Deviation 45.8 fL (36.4-46.3) 04/27/24 06:26 RDW Coeff of Miriam 13.8 % (11.5-14.5) 04/27/24 06:26 Plt Count 168 K/uL (130-400) 04/27/24 06:26 MPV 9.7 fL (9.4-12.4) 04/27/24 06:26 Immature Gran % (Auto) 0.6 % 04/27/24 06:26 Neut % (Auto) 74.0 % 04/27/24 06:26 Lymph % (Auto) 14.3 % 04/27/24 06:26 [place] % (Auto) 7.9 % 04/27/24 06:26 Eos % (Auto) 2.3 % 04/27/24 06:26 Baso % (Auto) 0.9 % 04/27/24 06:26 Neut # (Auto) 3.47 K/uL (1.40-6.50) 04/27/24 06:26 Lymph # (Auto) 0.67 K/uL (1.20-3.40) L 04/27/24 06:26 [place] # (Auto) 0.37 K/uL (0.11-0.59) 04/27/24 06:26 Eos # (Auto) 0.11 K/uL (0.00-0.50) 04/27/24 06:26 Baso # (Auto) 0.04 K/uL (0.00-0.20) 04/27/24 06:26 Immature Gran # (Auto) 0.03 K/uL (0.01-0.20) 04/27/24 06:26 PT 11.5 Seconds (9.0-12.0) 04/26/24 16:33 INR 1.1 (0.9-1.1) 04/26/24 16:33 Sodium 141 mmol/L (136-145) 04/27/24 06:26 Potassium 3.9 mmol/L (3.5-5.1) 04/27/24 06:26 Chloride 105 mmol/L (98-107) 04/27/24 06:26 Carbon Dioxide 30 mmol/L (21-32) 04/27/24 06:26 Anion Gap 6 (3-11) 04/27/24 06:26 BUN 23 mg/dl (6-23) 04/27/24 06:26 Creatinine 0.84 mg/dl (0.6-1.4) 04/27/24 06:26 Est Cr Clr Drug Dosing 74.3 ml/min 04/27/24 06:26 Est GFR ( Amer) 95.8 ml/min 04/27/24 06:26 Est GFR (Non-Af Amer) 82.7 ml/min 04/27/24 06:26 BUN/Creatinine Ratio 27.4 (10-20) H 04/27/24 06:26 Glucose 95 mg/dl (70-99(Fasting)) 04/27/24 06:26 Calcium 9.0 mg/dl (8.6-10.3) 04/27/24 06:26 Phosphorus 4.1 mg/dl (2.5-4.9) 04/27/24 06:26 Magnesium 2.1 mg/dl (1.7-2.4) 04/27/24 06:26 Total Bilirubin 1.0 mg/dl (0.2-1.0) 04/26/24 16:33 AST 13 U/L (13-39) 04/26/24 16:33 ALT 5 U/L (7-52) L 04/26/24 16:33 Alkaline Phosphatase 75 U/L (34-104) 04/26/24 16:33 Troponin I High Sens 7.7 pg/ml (0-20) 04/26/24 16:33 Total Protein 6.5 gm/dl (6.0-8.3) 04/26/24 16:33 Albumin 3.6 gm/dl (3.4-5.0) 04/27/24 06:26 Globulin 2.7 gm/dl (2.5-4.0) 04/26/24 16:33 Albumin/Globulin Ratio 1.4 (0.9-2) 04/26/24 16:33 Lipase 10 U/L (11-82) L 04/26/24 16:33 Impressions Chest X-Ray 04/26/24 16:39 XR chest 1V portable CLINICAL HISTORY: AMS TECHNIQUE: Single frontal radiograph of the chest was obtained. Comparison: None available at the time of this dictation. FINDINGS: No lines and tubes are seen. The cardiomediastinal silhouette is normal. Mild atelectasis is seen. No evidence of pleural effusion or pneumothorax. IMPRESSION: No acute chest disease. ACT 112: Negative or not required by law. Electronically signed by: Gareth Salcido M.D. 04/26/2024 5:[address] 04/26/24 16:39 CT head/brain wo con CLINICAL HISTORY: AMS Technique: Contiguous axial CT images of the head were acquired from the base of the skull to the vertex without intravenous contrast administration. Images were viewed in brain, subdural and bone windows. Automated dose lowering techniques and/or adjustment according to patient size were utilized for this exam. Comparison: Comparison is made to CT head 04/15/2013 Findings: There are layering hyperdense to isodense subdural collections with associated mass effect with effacement of the lateral ventricles. Imaged portions of the paranasal sinuses and mastoid air cells are clear. The orbits appear normal. There are no acute fractures of the calvaria or scalp swelling. Impression: Findings are compatible with subacute bilateral subdural hemorrhage. Mass effect is seen without anitha herniation. ACT 112: Negative or not required by law. Electronically signed by: Gareth Salcido M.D. 04/26/2024 5:54 PM Pending Results Patient Have Any Pending Studies at Discharge: No Discharge Instructions Given to Patient (Per Discharging Provider) [facility]: Mr. Ayala presented with severe headache, decreased oral intake, and inability to care for himself in the setting of bilateral subacute subdural hematomas. His family met with our palliative care provider where they had a discussion and ultimately elected for comfort measures only and to have the patient return home with your hospice services. His home medications have been discontinued. He has not been using any of his as needed comfort medications. Total Time Total Time Spent Total Time Spent (In Minutes): Greater than 30 minutes spent completing this discharge process including direct patient care, medication reconciliation, documentation, review of labs and images, and coordination of care. Coding Level of Care Code 21290 INP/OBS DISCH >30 MIN Diagnoses Bilateral subdural hematomas S06.5XAA Current use of group home anticoagulation Z79.01
== END 2024-04-29 08:22 | disposition hospice, home (50) | DRG 82 ==
LOC: 3N 16:18 → ED 16:18 → SUATTDRO 19:58 → 3N 22:02
DX: Z88.5 Allergy status to narcotic agent; D68.51 Activated protein C resistance; R15.9 Full incontinence of feces; Z66 Do not resuscitate; S06.5XAA Traumatic subdural hemorrhage with loss of consciousness status unknown, initial encounter; Z79.01 Long term (current) use of anticoagulants; I48.91 Unspecified atrial fibrillation; Z51.5 Encounter for palliative care; G93.5 Compression of brain; R32 Unspecified urinary incontinence; E78.5 Hyperlipidemia, unspecified; G44.89 Other headache syndrome